=== PATIENT | male | born 1930 | race Caucasian/White ===

== ENCOUNTER → 2018-01-07 | Outpatient (CLI) | payer OTHER ==
[~2018-01-07] MED LIST: HYDACE10B PO
== END ==
LOC: PLD 13:53 → LAB SHORT 13:53
DX: D48.5 Neoplasm of uncertain behavior of skin (principal)
CPT/HCPCS: 88305

== ENCOUNTER 2019-01-10 12:08 | Emergency (ER) | payer MEDICARE ==
[~2019-01-10] VITALS: Ht 177.8 cm; Wt 88.5 kg
[2019-01-10 14:18] LABS: BASOPHILS ABSOLUTE AUTO 0.05 K/mm3 (0.00-0.23); BASOPHILS PERCENT AUTO 0 % (0-2); EOSINOPHILS ABSOLUTE AUTO 0.09 K/mm3 (0.00-0.68); EOSINOPHILS PERCENT AUTO 1 % (0-6); Hematocrit 43.5 % (37.0-53.0); Hemoglobin 14.5 g/dL (13.5-17.5); IMMATURE GRAN PERCENT AUTO 2 % (0-1); LYMPHOCYTES ABSOLUTE AUTO 1.13 K/mm3 (0.84-5.20); LYMPHOCYTES PERCENT AUTO 8 % (21-46); MONOCYTES ABSOLUTE AUTO 0.97 K/mm3 (0.16-1.47); MONOCYTES PERCENT AUTO 7 % (4-13); Mean Corpuscular HGB 32.6 pg (26.0-34.0); Mean Corpuscular HGB Conc 33.3 g/dL (31.5-36.5); Mean Corpuscular Volume 98 fL (80-100); Mean Platelet Volume 8.6 fL (9.1-12.4); NEUTROPHILS ABSOLUTE AUTO 11.07 K/mm3 (1.96-9.15); NEUTROPHILS PERCENT AUTO 82 % (41-73); Platelet Count 160 K/mm3 (150-400); RDW Standard Deviation 43.3 fL (35.1-46.3); Red Blood Cell Count 4.45 M/mm3 (4.30-5.90); White Blood Cell Count 13.51 K/mm3 (4.00-11.30)
[2019-01-10 14:32] LABS: Anion Gap 7 mmol/L (6-16); Blood Urea Nitrogen 15 mg/dL (8-24); Bun/Creatinine Ratio 17.3 (12.0-20.0); CO2, Blood 26 mmol/L (21-32); Calcium, Blood 8.3 mg/dL (8.5-10.1); Chloride, Blood 107 mmol/L (98-108); Creatinine, Blood 0.87 mg/dL (0.60-1.20); Glomerular Filtration Rate >60 (60-); Glucose, Blood 118 mg/dL (70-99); Sodium, Blood 140 mmol/L (136-145)
[2019-01-10] MEDS ORDERED: Ultram50 MG PO (14:45)
== END 2019-01-10 16:03 | disposition home or self-care (01) ==
LOC: ER 12:08
PROVIDERS: Emergency Medicine
DX: S12.112A Nondisplaced Type II dens fracture, initial encounter for closed fracture (principal); S12.601A Unspecified nondisplaced fracture of seventh cervical vertebra, initial encounter for closed fracture; W10.9XXA Fall (on) (from) unspecified stairs and steps, initial encounter; F03.90 Unspecified dementia, unspecified severity, without behavioral disturbance, psychotic disturbance, mood disturbance, and anxiety
CPT/HCPCS: 70450; 72125; 80048; 85025; 96374; 96376; 99284-25; J3010

== ENCOUNTER 2019-01-12 15:51 | Inpatient (IN) | payer OTHER ==
[~2019-01-12] VITALS: Ht 175.3 cm; Wt 96.9 kg
[~2019-01-12 15:51] MED LIST changes: +Ultram50 MG PO
[2019-01-12] MEDS ORDERED: TRAZ50 PO ×2 (17:54)
[2019-01-12] MEDS ORDERED: DONE10 PO (17:54)
[2019-01-12] MEDS ORDERED: POTCHL10ER PO (17:55)
[2019-01-12] MEDS ORDERED: TAMS.4ER PO (17:55)
[2019-01-12] MEDS ORDERED: FURO20 PO (17:55)
[2019-01-12] MEDS ORDERED: Aspirin EC81 MG PO (17:56)
[2019-01-12] MEDS ORDERED: MEMA10 PO (17:56)
[2019-01-12] MEDS ORDERED: DOCU100 PO (17:57)
[2019-01-12] MEDS ORDERED: LACT PO (17:57)
--- NOTE | 2019-01-12 18:30 | NUR ---
REPORT TAKEN. REPORT TAKEN FROM ED RN, JORGE GARCIA. PT ROOM CLEAN & READY FROM ADMISSION.
[2019-01-12] MEDS ORDERED: OXYC5 PO (18:55)
[2019-01-12] MEDS ORDERED: TRAM50 PO (18:57)
[2019-01-13 05:30] LABS: BASOPHILS ABSOLUTE AUTO 0.08 K/mm3 (0.00-0.23); BASOPHILS PERCENT AUTO 1 % (0-2); EOSINOPHILS ABSOLUTE AUTO 0.43 K/mm3 (0.00-0.68); EOSINOPHILS PERCENT AUTO 5 % (0-6); Hemoglobin 13.5 g/dL (13.5-17.5); IMMATURE GRAN ABSOLUTE AUTO 0.13 K/mm3 (0.00-0.10); IMMATURE GRAN PERCENT AUTO 2 % (0-1); LYMPHOCYTES ABSOLUTE AUTO 1.37 K/mm3 (0.84-5.20); LYMPHOCYTES PERCENT AUTO 16 % (21-46); MONOCYTES PERCENT AUTO 13 % (4-13); Mean Corpuscular HGB 33.2 pg (26.0-34.0); Mean Corpuscular HGB Conc 33.8 g/dL (31.5-36.5); Mean Corpuscular Volume 98 fL (80-100); Mean Platelet Volume 8.9 fL (9.1-12.4); NEUTROPHILS ABSOLUTE AUTO 5.35 K/mm3 (1.96-9.15); NEUTROPHILS PERCENT AUTO 63 % (41-73); Platelet Count 151 K/mm3 (150-400); RDW Coefficient Variation 12.4 % (11.7-14.2); RDW Standard Deviation 44.6 fL (35.1-46.3); Red Blood Cell Count 4.07 M/mm3 (4.30-5.90); White Blood Cell Count 8.46 K/mm3 (4.00-11.30)
[2019-01-13 05:43] LABS: Anion Gap 6 mmol/L (6-16); Blood Urea Nitrogen 21 mg/dL (8-24); Bun/Creatinine Ratio 23.9 (12.0-20.0); CO2, Blood 26 mmol/L (21-32); Chloride, Blood 104 mmol/L (98-108); Creatinine, Blood 0.88 mg/dL (0.60-1.20); Glomerular Filtration Rate >60 (60-); Glucose, Blood 105 mg/dL (70-99); Potassium, Blood 4.4 mmol/L (3.5-5.5); Sodium, Blood 136 mmol/L (136-145)
--- NOTE | 2019-01-13 06:02 | NUR ---
01/13/19 0530 AIDE CAME INTO ROOM TO ASSIST SECURITY SYSTEMS ADMINISTRATOR AND NOTED RESP DOWN AND PT UNRESPONSIVE WITH EYES OPEN. NON-VERBAL. FINISHING PAN OPERATOR,JORDYN HOLCOMB CAME AND EVALUATED PT AND NOTED RESP AT 8. PRIMARY RN CAME FROM OTHER PT'S ROOM AND ALSO EVAL. WITH SAME RESULTS. SEE VITALS. NARCAN O.4 MG IN 9 ML SALINE Q 2 MINUTES. ADMINISTERED 3 ML OF TOTAL AMOUNT OVER 10 MINUTES. PT TALKING AND ANSWERING QUESTIONS. RESP AT 12. VITALS STABLE NOW. RN WILL NOTIFY MD OF EVENT.
--- NOTE | 2019-01-13 06:17 | NUR ---
01/13/19 0610 INFORMED HOSPITALIST RECEIVING ASSOCIATE STORE OF PRIOR EVENT STATED. DC DILAUDID AND CONTINUE TO MONITOR FOR PROBLEMS. USE TORADOL FOR PAIN FOR NOW.
--- NOTE | 2019-01-13 11:39 | NUR ---
Spiritual care visit conducted. Patient is lying in bed and alert with patient's friend, Wyatt, and her son Vladislav bedside. Wyatt mostly spoke for patient in that his dementia is advanced. She told of patient's family/life history, of patient's yarsani background and of patient's medical history (including his most recent fall. I listened empathically, encouraged self care for Wyatt, reinforced helpful attitudes and practices and normalized Wyatt's experience. Patient, Wyatt and Vladislav responded well to all interventions and voiced appreciation for the visit.
--- NOTE | 2019-01-14 01:54 | NUR ---
MEDICATED FOR PAIN. PT IS AWAKE, MOANING SOFTLY AND CONFUSED. PT SAYS "NO" WHEN ASKED IF HE IS IN PAIN, BUT IS RESTLESS, GRIMACING AND MOANING SOFTLY. PT WAS MEDICATED FOR PAIN PER ORDER. PT THEN SAID, "I DON'T WANT THEM HERE" PERHAPS SUGGESTING THAT HE DOES NOT WANT THE WIRING TECHNICIAN'S TO DO PERSONAL CARE FOR HIM. PT WAS INFORMED THAT THE WIRING TECHNICIAN'S WOULD BE INSTRUCTED TO WAIT UNTIL THE PAIN MEDICATION HAS TAKEN EFFECT BEFORE ATTEMPTING TO TURN HIM OR CLEAN HIM UP. HE THEN NODDED IN AGREEMENT AND SAID "OKAY". WILL CONTINUE TO MONITOR.
--- NOTE | 2019-01-14 06:33 | NUR ---
VSS, AFEBRILE, CONFUSED, PHMX OF DEMENTIA, SOFT CERVICAL COLLAR IN PLACE, PT SLEPT MOST OF THE NIGHT W/OUT COMPLAINTS. THEN HE WOKE UP, STARTING CALLING OUT FOR HELP REPEATEDLY, C/O PAIN IN HIS HEAD, WAS MEDICATED PER ORDER, CONTINUED TO CALL OUT AND C/O PAIN UNTIL HE FELL BACK TO SLEEP AGAIN. PT PULLED OUT HIS IV DURING HIS THRASHING AROUND. NO ATTEMPTS HAVE BEEN MADE TO RESTART IT WHILE HE WAS YELLING AND C/O PAIN. WILL REPORT TO ON-COMING SHIFT.
--- NOTE | 2019-01-14 11:27 | NUR ---
NOTIFIED DR. BENDER PT PULLED OUT HIS IV LAST NIGHT. NOTIFIED DR. BENDER PT IS ONLY RECIEVING PRN TORADOL VIA IV AND HIS PAIN IS BEING MANAGED WITH PO PAIN MEDS. DR. BENDER SAID OK TO PUT IN NO IV ACCESS NEEDED ORDER.
--- NOTE | 2019-01-14 18:27 | NUR ---
SHIFT SUMMARY- PT CONFUSED. PT RESPONDS TO VERBAL STIMULI. MEDICATED FOR PAIN PER EMAR. RESP E/U ON RA. 94% ON RA. PHYSICAL THERAPY IN TO SEE PT THIS AFTERNOON. FAMILY IN TO SEE PT T/O THE DAY. NO OTHER SIGNIFICANT CHANGES THIS SHIFT.
--- NOTE | 2019-01-14 22:02 | NUR ---
fAMILY REQUESTS PAIN MEDICATION. PT'S FAMILY WAS IN THE ROOM DURING CHANGE OF SHIFT. HIS DAUGHTER SPOKE TO STAFF ABOUT THE AMOUNT OF PAIN MEDICATION THAT IS BEING ADMINISTERED TO HIM. THEY REQUESTED THAT HE BE GIVEN THE MAXIMUM AMOUNT OF PAIN MEDICATION QUICKLY IT BECOMES AVAILABLE. THERE HAD BEEN A PREVIOUS EVENT OF OVER INTOXICATION AND THE PT HAD BEEN ADMINISTERED NARCAN TO REVERSE THE EFFECTS OF NARCOTICS. THIS EVENT WAS, NO DOUBT, VERY PAINFUL FOR HIM. THIS EVENT WAS DISCUSSED WITH THE FAMILY. HOWEVER, THE DAUGHTER REMAINED FIRM IN HER REQUEST TO GIVE HIM MUCH PAIN MEDICATION HE CAN HAVE PER ORDER. THE DAUGHTER ALSO STATED; "YOU HAVE MY PERMISSION TO NOT TURN HIM EVERY TWO HOURS IF IT IS TOO PAINFUL FOR HIM". IT WAS EXPLAINED TO HER THAT THIS IS A FACILITY POLICY THAT IS BACKED BY A SIGNIFICANT BODY OF RESEARCH THAT SUGGESTS THAT TURNING Q 2 HOURS WILL REDUCE HIS RISK FOR GETTING BED SORES. THE DAUGHTER WAS UNIMPRESSED AND AGAIN REQUESTED THAT HER FATHER NOT BE MOVED EVERY 2 HOURS. THE DAUGHTER ALSO STATED THAT SHE WAS LEAVING FOR THE EVENING BUT THAT A CLOSE FAMILY FRIEND WAS COMING OVER SOON WHO WOULD SUPERVISE THE ADMINISTRATION OF THE PATIENT'S PAIN MEDICATION. THIS FRIEND DID, INDEED, ARRIVE AROUND 1999 AND SHE REPEATED ALMOST EVERYTHING THAT THE DAUGHTER HAD REQUESTED. SHE ALSO INSISTED THAT THE MAXIMUM AMOUNT OF PAIN MEDICATION BE GIVEN JUST QUICKLY IT BECAME AVAILABLE. PT WAS MEDICATED FOR PAIN PER ORDER AND AT THE REQUEST OF THE FAMILY. WILL CONTINUE TO MONITOR.
--- NOTE | 2019-01-15 05:25 | NUR ---
VSS, AFEBRILE, ALERT, CONFUSED, DEMENTIA, PT SLEPT WELL ALL NOC, NO COMPLAINTS, NO SIGNIFICANT CHANGES NOTED, WILL REPORT TO ON-COMING SHIFT.
--- NOTE | 2019-01-15 17:13 | NUR ---
SHIFT SUMMARY- PT RESPONDS TO VERBAL STIMULI. PT STATES "I AM NOT DOING GOOD" UPON REPOSITIONING. MEDS GIVEN PER EMAR FOR PAIN. RESP E/U ON RA. ABDOMEN FIRM AND DISTENDED. LARGE BM TODAY. TURNS Q2H. OT IN TO SEE PT TODAY. FAMILY IN TO SEE PT T/O THE DAY. NO OTHER SIGNIFICANT CHANGES THIS SHIFT.
--- NOTE | 2019-01-15 20:47 | NUR ---
VSS, AFEBRILE, A/O TO SELF AND FAMILY. PT'S DAUGHTER WAS HERE AT CHANGE OF SHIFT. SHE SPENT SEVERAL MINUTES DISCUSSING THE FAMILY'S INABILITY TO CARE FOR THE PT AT HOME. SHE ALSO REPEATED THAT ANDREA, THE PT'S HOME CAREGIVER, WILL BE HERE LATER IN THE DAY AND WANTS TO HELP ADMINISTER HIS PAIN MEDICATION. SHE ALSO POINTED OUT THAT ANDREA WILL NOT WANT TO WAIT UNTIL 2200 FOR THE PT'S PAIN MEDICATION. THE DAUGHTER INSISTED THAT THE PAIN MEDICATION SHOULD BE ADMINISTERED SOONER THAN EVERY FOUR HOURS PRESCRIBED BY THE MD. LATER, ANDREA ARRIVED AND SHE DID, INDEED, REQUEST PAIN MEDICATION FOR THE PT BEFORE 2100. THIS DOSE WAS ADMINISTERED BY THE CHARGE NURSE AND IT WAS THE REMAINING AMOUNT OF OXYCODONE THAT HE COULD HAVE GOTTEN AT 1830. HOWEVER, ANDREA CONTINUED TO ASK ABOUT ADMINISTERING HIS MEDICATION SOONER SO THAT SHE COULD GO HOME. THE ISSUE IS THAT IF HE GOT AN ADDITIONAL 5 MG OF OXYCODONE BEFORE 2100 AND THEN GETS THE REQUESTED 10 MG AT 2230 THEN HE WILL HAVE GOTTEN 15 MG IN LESS THAN 4 HOURS. FOR THIS REASON, NO ADDITIONAL OXYCODONE WILL BE ADMINISTERED UNTIL AFTER 2230. WILL CONTINUE TO MONITOR.
--- NOTE | 2019-01-16 05:10 | NUR ---
VSS, AFEBRILE, A/O TO SELF AND FAMILY, PT SLEPT WELL OVERNOC BUT WOKE OFTEN FOR SHOFT PERIODS OF TIME. PT IS IRRITABLE AND EASILY ANNOYED WITH HIS CAREGIVERS. PT WAS ALSO IRRITABLE WITH ANDREA, HIS PRIMARY CAREGIVER AT HOME. PT MEDICATED FOR PAIN PER ORDER. DAUGHTER SPOKE TO STAFF ABOUT HER INABILITY TO CARE FOR HIM AT HOME. THIS INFORMATION MIGHT BE IRRITATING HIM, WELL. WILL REPORT TO ON-COMING SHIFT.
--- NOTE | 2019-01-16 14:28 | NUR ---
MID SHIFT SUMMARY PATIENT IS UP IN CHAIR RESTING THIS AFTERNOON WITH HIS FAMILY BY HIS SIDE
--- NOTE | 2019-01-16 18:40 | NUR ---
SHIFT SUMMARY CONFUSED/DEMENTIA; 2 PERSON MAX ASSIST TO CHAIR. MEDICATED Q4 FOR NECK PAIN. INCONTINENT. FAMILY REQUESTING PT TO STAY THROUGH THE WEEKEND DUE TO INABILITY TO OBTAIN DURABLE MEDICAL EQUIPMENT [facility]IL [facility] STODDARED AWARE BUT WILL BE WRITING DISCHARGE ORDERS TO HOME WITH HOME HEALTH IN A.M.
--- NOTE | 2019-01-17 06:13 | NUR ---
SHIFT SUMMARY PT SLEPT WELL T/O NIGHT. NO ACUTE CHANGES THIS SHIFT. AOX1, HX DEMENTIA, ANSWERS SOME YES/NO QUESTIONS APPROPRIATELY. VSS. NO S/S OF SOB OR N/V. SHOWS NON-VERBAL S/S OF PAIN SUCH MOANING, RESTLESSNESS, GRIMACING & BRACING. MEDICATED PT 3X W/OXYCODONE PER ORDERS. REPOSITIONED/CHANGED PRN, PT IS HARD TO ROLL & DOES NOT HELP- REQUIRES 3 PEOPLE TO ASSIST W/CHANGES. CALL LIGHT IN REACH, BED ALARM ON & I WILL CONTINUE TO MONITOR.
--- NOTE | 2019-01-17 15:52 | NUR ---
Initial Visit: Palliative Care Consult for Advanced Care Planning. Pt is A&Ox1. He is pleasantly confused and appears comfortable. Pt's son Davon present during visit. Engaged in therapeutic discussion regarding advanced care planning. Davon reports Pt has a girlfriend of 30 plus years and Pt has been staying with her. Pt also has his own home. When asked questions regarding Pt's ADL's Davon responds by stating Pt is independent with everything. Further in the discussion Davon reports the Pt often puts his clothes on in appripriately. Davon states there has been times when the Pt is wearing his shirt as pants and his pants as a shirt. Pt at [facility] requires the use of a walker with standbye assist. Pt is able to feed him self as well. Pt requires assistance with food preparation as well. Educated Davon on the disease process of dementia. Discussed the importance of planning for the Pt's disease process and at some point Pt may require a higher level of care. Pt's daughter Bety arrives at this point. Continued conversation regarding the importance of advanced care planning. Davon states assisted living is not an option yet. Davon appears to be in denial of Pt's disease process. Discussed the option of caregivers coming into the home. Davon reports the Pt's girlfriend will not allow anyone in her home including caregivers. Davon states he is moving in to the Pt's home to help care for him. Discussed talking with the MD regarding music coordinator program. Davon reports he will inquire about this. Family expresses frustrations regarding discharge plan. Family does not feel it is safe for Pt to be discharged at this time. They express disagreement with physical therapy's recommendation of home health. Family report Pt is not equiped to go home yet. Davon reports the Pt needs a hospital bed and transfer equipment in the home before Pt is discharged in order to care for Pt safely. Family reports their plan is to take Pt back to [facility] once discharged from [facility] in hopes they will admit Pt. Family reports no other concerns at this time. Spoke with Bety (physical theapy) regarding recommendations. Bety reports Pt does not qualify for SNF due to Pt's inability to follow commands for physical therapy rehabilitation. Bety reports physical therapy for Pt at home would be more beneficial. Pt requires mechanical lift for transfers and hospital bed would also be beneficial. Bety reports this was discussed with family by care managment. earlier in the week to prepare them for discharge. Spoke with Pt's bedside nurse Karo and she expresses some concerns for a safe discharge plan. Karo also reports family appears to be in denial of Pt's disease process. Spoke with Dr Gurrola and reported family concerns of discharge plan. Dr Gurrola reports concerns have been noted and is required to discharge Pt. Plan: Will remain available. Left family contact information for palliative care.
[2019-01-17 16:06] LABS: Source, Urine Catheter
[2019-01-17 16:11] LABS: Appearance, Urine Clear (Clear); Bilirubin, Urine Neg (Neg); Blood, Urine 2+ (Neg); Color, Urine Yellow (P-Yellow); Glucose Qualitative, Urine Neg (Neg); Ketones, Urine Neg (Neg); Leukocyte Esterase, Urine Neg (Neg); Nitrite, Urine Neg (Neg); Protein, Urine Neg (Neg); Urobilinogen, Urine NORM (Normal)
--- NOTE | 2019-01-17 16:16 | NUR ---
DISCHARGE SUMMARY BILL LOOKS MILDLY PAINFUL AT TIMES THIS SHIFT, GIVEN OXY PER FAMILY REQUEST. ABD DISTENDED, PER FMAILY THIS IS NORMAL, BUT PT HAVING SUPRAPUBIC PAIN ON PALPATION, BLADDER SCAN SHOWING 866MLS. DR BENDER INFORMED, HE ORDERED RAMOS CATHETER WITH LEG BAG TO BE SENT HOME WITH PT. PT AND FAMILY EDUCATED ON CATHETER NECESSITY AND CARE. HH ORDERS FAXED TO [facility]. PT LEAVING VIA WHEELCHAIR TRANSPORT THAT IS BEING PAID FOR BY FAMILY.PT TOOK PILLS PRESCRIBED. Q2 TURN AND INCONTINENCE CARE COMPLETED. HAD 3 SMALL BM THIS SHIFT. BOTTOM RED BUT INTACT. TRIED TO GET PT UP WITH MAX ASSIST OF 2 BUT UNABLE ?DUE TO MENTAL STATUS VS WEAKNESS. SON AND DAUGHTER AT BS. PALLIATIVE CARE NURSE FINESSE IN TO SEE PT. SEE NOTES.
[2019-01-17 16:24] LABS: Bacteria Not Seen /hpf; Squamous Epithelial Cells Not Seen /hpf (Few); White Blood Cells, Urine 0-2 /hpf (0-5)
== END 2019-01-17 18:44 | disposition home health service (06) | DRG 948 ==
LOC: ER 15:51 → MEDS 17:39 → ENPENDDIS 01-17 11:01 → MEDS 01-17 18:44
PROVIDERS: Internal Medicine; ADMIT Internal Medicine
DX: G89.11 Acute pain due to trauma (principal); S12.110A Anterior displaced Type II dens fracture, initial encounter for closed fracture; S12.600A Unspecified displaced fracture of seventh cervical vertebra, initial encounter for closed fracture; G89.21 Chronic pain due to trauma; N40.0 Benign prostatic hyperplasia without lower urinary tract symptoms; F03.90 Unspecified dementia, unspecified severity, without behavioral disturbance, psychotic disturbance, mood disturbance, and anxiety; Z99.3 Dependence on wheelchair; W19.XXXA Unspecified fall, initial encounter; M51.36 Other intervertebral disc degeneration, lumbar region; M48.061 Spinal stenosis, lumbar region without neurogenic claudication; Z51.5 Encounter for palliative care
CPT/HCPCS: 36415; 80048; 81001; 85025; 96374; 97162; 97166; 97530; 97535; 99285-25; C9113; J1170; J1650; J1885; J2310

== ENCOUNTER → 2019-04-22 | Outpatient (CLI) | payer OTHER ==
[~2019-04-22] MED LIST changes: +ALBU3IS INH; +Aspir 8181 MG PO; +Aspirin EC81 MG PO; +CRANBERRY450 MG PO; +Cipro500 MG PO; +Ciprofloxa400 MG/200 IV; +DOCU100 PO; +DONE10 PO; +FURO20 PO; +FURO40 PO; +LACT PO; +MEMA10 PO; +MIRALAX17 GM PO; +OMEPRAZOLE20 MG PO; +OXYC5 PO; +POTCHL10ER PO; +POTCHL20ER PO; +Rocephin 1g1 G/50 ML IM; +TAMS.4ER PO; +TRAM50 PO; +TRAZ150T57 PO; +TRAZ50 PO; +Vitamin D2000 UNIT PO
[2019-04-22 08:17] LABS: Source, Urine Catheter
[2019-04-22 09:31] LABS: Bilirubin, Urine Neg (Neg); Blood, Urine 5+ (Neg); Glucose Qualitative, Urine Neg (Neg); Ketones, Urine Neg (Neg); Leukocyte Esterase, Urine 2+ (Neg); Nitrite, Urine Neg (Neg); Protein, Urine 2+ (Neg); Urobilinogen, Urine NORM (Normal)
[2019-04-22 09:47] LABS: Appearance, Urine Cloudy (Clear); Color, Urine Orange (P-Yellow)
[2019-04-22 09:50] LABS: Red Blood Cells, Urine TNTC /hpf (0-2)
[2019-04-22 09:51] LABS: Bacteria Few /hpf; Squamous Epithelial Cells Rare /hpf (Few)
[2019-04-22 09:52] LABS: Amorphous Light (0-Heavy)
== END | disposition home or self-care (01) ==
LOC: LAB RH 08:16 → EDSTATUS 15:28
DX: N39.0 Urinary tract infection, site not specified (principal)
CPT/HCPCS: 81001; 87077; 87086; 87186

== ENCOUNTER → 2019-06-28 | Outpatient (CLI) | payer OTHER ==
[~2019-06-28] MED LIST changes: +ACET325 PO; +ADULT GLYCERIN1 EACH PR; +ALBU90OI INH; +Amoxicillin500 MG PO; +DONEPEZIL HCL10 MG PO; +Feverall650 MG PR; +Fleet Enema132 ML PR; +IBUP600 PO; +Lasix40 MG PO; +Loratadine10 MG PO; +MILK OF MA400 MG/5 M PO
[2019-06-28 18:26] LABS: Appearance, Urine Hazy (Clear); Bilirubin, Urine Neg (Neg); Blood, Urine 5+ (Neg); Color, Urine Yellow (P-Yellow); Glucose Qualitative, Urine Neg (Neg); Ketones, Urine Neg (Neg); Leukocyte Esterase, Urine 3+ (Neg); Nitrite, Urine Neg (Neg); Protein, Urine 3+ (Neg); Urobilinogen, Urine NORM (Normal)
[2019-06-28 18:45] LABS: Bacteria Many /hpf; Mucus Light (0-Heavy); Squamous Epithelial Cells Few /hpf (Few); White Blood Cells, Urine 50-100 /hpf (0-5)
== END | disposition home or self-care (01) ==
LOC: EDSTATUS 09:19 → LAB RH 18:18
DX: I10 Essential (primary) hypertension (principal)
CPT/HCPCS: 81001; 87077; 87086; 87186

== ENCOUNTER 2019-06-30 07:18 | Emergency (ER) | payer OTHER ==
[~2019-06-30] VITALS: Ht 182.9 cm; Wt 95.2 kg
[~2019-06-30 07:18] MED LIST changes: -ACET325 PO; -ADULT GLYCERIN1 EACH PR; -ALBU3IS INH; -ALBU90OI INH; -Amoxicillin500 MG PO; -Aspir 8181 MG PO; -CRANBERRY450 MG PO; -Cipro500 MG PO; -Ciprofloxa400 MG/200 IV; -DONEPEZIL HCL10 MG PO; -FURO40 PO; -Feverall650 MG PR; -Fleet Enema132 ML PR; -IBUP600 PO; -Lasix40 MG PO; -Loratadine10 MG PO; -MILK OF MA400 MG/5 M PO; -MIRALAX17 GM PO; -OMEPRAZOLE20 MG PO; -POTCHL20ER PO; -Rocephin 1g1 G/50 ML IM; -TRAZ150T57 PO; -Vitamin D2000 UNIT PO
[2019-06-30] MEDS ORDERED: Rocephin 1g1 G/50 ML IM (07:29)
[2019-06-30] MEDS ORDERED: Vitamin D2000 UNIT PO (07:30)
[2019-06-30] MEDS ORDERED: Aspir 8181 MG PO (07:30)
[2019-06-30] MEDS ORDERED: DONE10 PO (07:30)
[2019-06-30] MEDS ORDERED: TAMS.4ER PO (07:30)
[2019-06-30] MEDS ORDERED: TRAZ150T57 PO (07:31)
[2019-06-30] MEDS ORDERED: MEMA10 PO (07:32)
[2019-06-30] MEDS ORDERED: FURO40 PO (07:32)
[2019-06-30] MEDS ORDERED: POTCHL20ER PO (07:33)
[2019-06-30] MEDS ORDERED: OXYC5 PO (07:33)
[2019-06-30] MEDS ORDERED: OMEPRAZOLE20 MG PO (07:33)
[2019-06-30] MEDS ORDERED: TRAZ50 PO (07:34)
[2019-06-30] MEDS ORDERED: ALBU3IS INH (07:34)
[2019-06-30 08:00] LABS: BASOPHILS ABSOLUTE AUTO 0.04 K/mm3 (0.00-0.23); BASOPHILS PERCENT AUTO 0 % (0-2); Hematocrit 42.1 % (37.0-53.0); Hemoglobin 13.2 g/dL (13.5-17.5); LYMPHOCYTES ABSOLUTE AUTO 0.74 K/mm3 (0.84-5.20); LYMPHOCYTES PERCENT AUTO 6 % (21-46); MONOCYTES ABSOLUTE AUTO 1.14 K/mm3 (0.16-1.47); MONOCYTES PERCENT AUTO 10 % (4-13); Mean Corpuscular HGB 31.9 pg (26.0-34.0); Mean Corpuscular HGB Conc 31.4 g/dL (31.5-36.5); RDW Coefficient Variation 13.2 % (11.7-14.2); Red Blood Cell Count 4.14 M/mm3 (4.30-5.90); White Blood Cell Count 11.81 K/mm3 (4.00-11.30)
[2019-06-30 08:18] LABS: EOSINOPHILS ABSOLUTE AUTO 0.02 K/mm3 (0.00-0.68); EOSINOPHILS PERCENT AUTO 0 % (0-6); IMMATURE GRAN ABSOLUTE AUTO 0.26 K/mm3 (0.00-0.10); IMMATURE GRAN PERCENT AUTO 2 % (0-1); Mean Corpuscular Volume 102 fL (80-100); Mean Platelet Volume 9.5 fL (9.1-12.4); NEUTROPHILS ABSOLUTE AUTO 9.61 K/mm3 (1.96-9.15); NEUTROPHILS PERCENT AUTO 81 % (41-73); Platelet Count 168 K/mm3 (150-400)
[2019-06-30 08:22] LABS: BAND PERCENT MAN 8 % (0-8); BASOPHILS ABSOLUTE MAN 0.11 K/mm3 (0.00-0.23); BASOPHILS PERCENT MAN 1 % (0-2); EOSINOPHILS PERCENT MAN 0 % (0-6); LYMPHOCYTES ABSOLUTE MAN 0.94 K/mm3 (0.84-5.20); LYMPHOCYTES PERCENT MAN 8 % (21-46); MONOCYTES ABSOLUTE MAN 0.94 K/mm3 (0.16-1.47); MONOCYTES PERCENT MAN 8 % (4-13); SEG NEUTROPHILS PERCENT MAN 75 % (41-73); TOTAL CELLS COUNTED 100
[2019-06-30 08:42] LABS: Albumin, Blood 2.8 g/dL (3.4-5.0); Albumin/Globulin Ratio 0.6 (0.8-1.8); Bilirubin, Total 0.6 mg/dL (0.1-1.0); Bun/Creatinine Ratio 24.2 (12.0-20.0); Creatinine, Blood 1.28 mg/dL (0.60-1.20); Globulin, Blood 4.6 g/dL (2.2-4.0); Total Protein, Blood 7.4 g/dL (6.4-8.2)
[2019-06-30 08:59] LABS: Calcium, Blood 8.4 mg/dL (8.5-10.1)
[2019-06-30] MEDS ORDERED: Cipro500 MG PO (10:05)
--- NOTE | 2019-06-30 10:42 | NUR ---
Initial Visit: ED Palliative Care Consult for Advanced Care Planning. Spoke with Dr Wayne and discussed case. Pt is resting on gurina upon arrival. Dr Wayne educates family on clinical picture and plan. This RN remained in room and contined education. Pt's daughter Camelia (MPOA) and Pt's son in law are present. Pt is known to this contract writer from previous visit. Pt currently lives at [facility]. Listened as Camelia explains up intil the last few days Pt has been able to have meaningful conversations and had a good appetite. At baseline Pt is chair bound with an indwelling Thomas Catheter. Pt also has a history of recurrent UTI's. Educated family on disease process including trajecory of disease with V/U made by family. Educated on hospice as an option. Family report no other concerns at this time. Spoke with Dr Wayne after visit and plan is to disharge Pt. Palliative Care will remain available.
[2019-07-05] MEDS ORDERED: CRANBERRY450 MG PO (06:14)
[2019-07-05] MEDS ORDERED: MIRALAX17 GM PO (06:14)
[2019-07-05] MEDS ORDERED: Ciprofloxa400 MG/200 IV (06:20)
== END 2019-06-30 10:45 | disposition home or self-care (01) ==
LOC: ER 07:18
PROVIDERS: Emergency Medicine
DX: N39.0 Urinary tract infection, site not specified (principal); R41.82 Altered mental status, unspecified; Z88.8 Allergy status to other drugs, medicaments and biological substances; Z79.899 Other long term (current) drug therapy; Z79.82 Long term (current) use of aspirin; F03.90 Unspecified dementia, unspecified severity, without behavioral disturbance, psychotic disturbance, mood disturbance, and anxiety
CPT/HCPCS: 71045; 80053; 85025; 93005; 93010; 96365; 99284-25; J1956; J7030

== ENCOUNTER 2019-08-26 16:37 | Emergency (ER) | payer OTHER ==
[~2019-08-26] VITALS: Ht 172.7 cm; Wt 110.7 kg
[~2019-08-26 16:37] MED LIST changes: +ALBU3IS INH; +Aspir 8181 MG PO; +CRANBERRY450 MG PO; +Cipro500 MG PO; +Ciprofloxa400 MG/200 IV; +FURO40 PO; +MIRALAX17 GM PO; +OMEPRAZOLE20 MG PO; +POTCHL20ER PO; +Rocephin 1g1 G/50 ML IM; +TRAZ150T57 PO; +Vitamin D2000 UNIT PO
[2019-08-26 17:12] LABS: BASOPHILS ABSOLUTE AUTO 0.08 K/mm3 (0.00-0.23); BASOPHILS PERCENT AUTO 1 % (0-2); EOSINOPHILS ABSOLUTE AUTO 0.68 K/mm3 (0.00-0.68); EOSINOPHILS PERCENT AUTO 10 % (0-6); Hematocrit 48.1 % (37.0-53.0); Hemoglobin 14.8 g/dL (13.5-17.5); IMMATURE GRAN ABSOLUTE AUTO 0.08 K/mm3 (0.00-0.10); IMMATURE GRAN PERCENT AUTO 1 % (0-1); LYMPHOCYTES ABSOLUTE AUTO 1.73 K/mm3 (0.84-5.20); LYMPHOCYTES PERCENT AUTO 26 % (21-46); MONOCYTES ABSOLUTE AUTO 0.63 K/mm3 (0.16-1.47); MONOCYTES PERCENT AUTO 9 % (4-13); Mean Corpuscular HGB 32.3 pg (26.0-34.0); Mean Corpuscular HGB Conc 30.8 g/dL (31.5-36.5); Mean Corpuscular Volume 105 fL (80-100); Mean Platelet Volume 8.7 fL (9.1-12.4); NEUTROPHILS ABSOLUTE AUTO 3.55 K/mm3 (1.96-9.15); NEUTROPHILS PERCENT AUTO 53 % (41-73); Platelet Count 185 K/mm3 (150-400); RDW Standard Deviation 50.2 fL (35.1-46.3); Red Blood Cell Count 4.58 M/mm3 (4.30-5.90); White Blood Cell Count 6.75 K/mm3 (4.00-11.30)
[2019-08-26 17:47] LABS: Alanine Aminotransfer (ALT/SGP 38 U/L (12-78); Albumin, Blood 3.4 g/dL (3.4-5.0); Albumin/Globulin Ratio 0.8 (0.8-1.8); Alk Phos 105 U/L (50-136); Anion Gap 6 mmol/L (6-16); Aspartate Aminotrans (AST/SGOT 30 U/L (12-37); Bilirubin, Total 0.5 mg/dL (0.1-1.0); Blood Urea Nitrogen 21 mg/dL (8-24); Bun/Creatinine Ratio 23.6 (12.0-20.0); CO2, Blood 25 mmol/L (21-32); Calcium, Blood 8.4 mg/dL (8.5-10.1); Chloride, Blood 109 mmol/L (98-108); Creatinine, Blood 0.89 mg/dL (0.60-1.20); Globulin, Blood 4.2 g/dL (2.2-4.0); Glomerular Filtration Rate >60 (60-); Glucose, Blood 110 mg/dL (70-99); Potassium, Blood 4.4 mmol/L (3.5-5.5); Sodium, Blood 140 mmol/L (136-145); Total Protein, Blood 7.6 g/dL (6.4-8.2)
[2019-08-26] MEDS ORDERED: DONEPEZIL HCL10 MG PO (18:20)
[2019-08-26] MEDS ORDERED: Loratadine10 MG PO (18:21)
[2019-08-26] MEDS ORDERED: Feverall650 MG PR (18:22)
[2019-08-26] MEDS ORDERED: TRAZ50 PO (18:25)
[2019-08-26] MEDS ORDERED: ALBU90OI INH (18:27)
[2019-08-26] MEDS ORDERED: IBUP600 PO (18:28)
[2019-08-26] MEDS ORDERED: MILK OF MA400 MG/5 M PO (18:28)
[2019-08-26] MEDS ORDERED: ACET325 PO (18:29)
[2019-08-26] MEDS ORDERED: Fleet Enema132 ML PR (18:30)
[2019-08-26] MEDS ORDERED: ADULT GLYCERIN1 EACH PR (18:30)
[2019-08-26 19:20] LABS: Bilirubin, Urine Neg (Neg); Blood, Urine 1+ (Neg); Glucose Qualitative, Urine Neg (Neg); Ketones, Urine Neg (Neg); Leukocyte Esterase, Urine 3+ (Neg); Nitrite, Urine Pos (Neg); Protein, Urine Neg (Neg); Urobilinogen, Urine NORM (Normal)
[2019-08-26 19:33] LABS: Appearance, Urine Hazy (Clear); Color, Urine Yellow (P-Yellow)
[2019-08-26 19:34] LABS: Bacteria Many /hpf; Mucus Light (0-Heavy); Red Blood Cells, Urine 0-2 /hpf (0-2); Squamous Epithelial Cells Rare /hpf (Few)
[2019-08-26] MEDS ORDERED: Amoxicillin500 MG PO (19:55)
[2019-08-26] MEDS ORDERED: Lasix40 MG PO (20:01)
== END 2019-08-26 20:52 | disposition home or self-care (01) ==
LOC: ER 16:37
PROVIDERS: Emergency Medicine
DX: E87.70 Fluid overload, unspecified (principal); F03.90 Unspecified dementia, unspecified severity, without behavioral disturbance, psychotic disturbance, mood disturbance, and anxiety; Z88.8 Allergy status to other drugs, medicaments and biological substances; Z79.899 Other long term (current) drug therapy; Z79.82 Long term (current) use of aspirin; Z86.73 Personal history of transient ischemic attack (TIA), and cerebral infarction without residual deficits
CPT/HCPCS: 36415; 51701; 71046; 80053; 81001; 83880; 85025; 87077; 87086; 87186; 96365-59; 99284-25; J0696

== ENCOUNTER → 2019-11-26 | Outpatient (CLI) | payer OTHER ==
[~2019-11-26] MED LIST changes: +ACET325 PO; +ADULT GLYCERIN1 EACH PR; +ALBU90OI INH; +Amoxicillin500 MG PO; +DONEPEZIL HCL10 MG PO; +Feverall650 MG PR; +Fleet Enema132 ML PR; +IBUP600 PO; +Lasix40 MG PO; +Loratadine10 MG PO; +MILK OF MA400 MG/5 M PO
[2019-11-26 09:34] LABS: BASOPHILS ABSOLUTE AUTO 0.08 K/mm3 (0.00-0.23); BASOPHILS PERCENT AUTO 1 % (0-2); EOSINOPHILS ABSOLUTE AUTO 0.54 K/mm3 (0.00-0.68); EOSINOPHILS PERCENT AUTO 8 % (0-6); Hemoglobin 14.4 g/dL (13.5-17.5); IMMATURE GRAN ABSOLUTE AUTO 0.06 K/mm3 (0.00-0.10); IMMATURE GRAN PERCENT AUTO 1 % (0-1); LYMPHOCYTES ABSOLUTE AUTO 1.54 K/mm3 (0.84-5.20); LYMPHOCYTES PERCENT AUTO 22 % (21-46); MONOCYTES ABSOLUTE AUTO 0.94 K/mm3 (0.16-1.47); MONOCYTES PERCENT AUTO 13 % (4-13); Mean Corpuscular HGB 31.9 pg (26.0-34.0); Mean Corpuscular HGB Conc 31.3 g/dL (31.5-36.5); Mean Corpuscular Volume 102 fL (80-100); NEUTROPHILS ABSOLUTE AUTO 3.95 K/mm3 (1.96-9.15); NEUTROPHILS PERCENT AUTO 56 % (41-73); Platelet Count 179 K/mm3 (150-400); RDW Coefficient Variation 12.1 % (11.7-14.2); RDW Standard Deviation 45.6 fL (35.1-46.3); Red Blood Cell Count 4.52 M/mm3 (4.30-5.90); White Blood Cell Count 7.11 K/mm3 (4.00-11.30)
[2019-11-26 10:30] LABS: Anion Gap 6 mmol/L (6-16); Blood Urea Nitrogen 23 mg/dL (8-24); Bun/Creatinine Ratio 23.6 (12.0-20.0); CO2, Blood 29 mmol/L (21-32); Calcium, Blood 8.8 mg/dL (8.5-10.1); Chloride, Blood 107 mmol/L (98-108); Creatinine, Blood 0.98 mg/dL (0.60-1.20); Glomerular Filtration Rate >60 (60-); Glucose, Blood 100 mg/dL (70-99); Potassium, Blood 4.2 mmol/L (3.5-5.5); Sodium, Blood 142 mmol/L (136-145)
== END | disposition home or self-care (01) ==
LOC: LAB RH 07:40 → EDSTATUS 15:36
PROVIDERS: Family Medicine
DX: I73.9 Peripheral vascular disease, unspecified (principal); G45.9 Transient cerebral ischemic attack, unspecified
CPT/HCPCS: 36415; 80048; 85025

== ENCOUNTER → 2019-12-31 | Outpatient (CLI) | payer OTHER ==
[2019-12-31 09:44] LABS: Anion Gap 2 mmol/L (6-16); Blood Urea Nitrogen 17 mg/dL (8-24); Bun/Creatinine Ratio 15.2 (12.0-20.0); CO2, Blood 37 mmol/L (21-32); Calcium, Blood 9.1 mg/dL (8.5-10.1); Chloride, Blood 107 mmol/L (98-108); Creatinine, Blood 1.12 mg/dL (0.60-1.20); Glomerular Filtration Rate >60 (60-); Glucose, Blood 101 mg/dL (70-99); Potassium, Blood 5.1 mmol/L (3.5-5.5); Sodium, Blood 146 mmol/L (136-145)
== END | disposition home or self-care (01) ==
LOC: LAB RH 07:40 → EDSTATUS 11:01
PROVIDERS: Family Medicine
DX: I73.9 Peripheral vascular disease, unspecified (principal)
CPT/HCPCS: 80048

== ENCOUNTER → 2020-01-26 | Outpatient (CLI) | payer OTHER ==
[2020-01-26 11:01] LABS: Anion Gap 6 mmol/L (6-16); Blood Urea Nitrogen 14 mg/dL (8-24); Bun/Creatinine Ratio 16.1 (12.0-20.0); CO2, Blood 30 mmol/L (21-32); Chloride, Blood 107 mmol/L (98-108); Creatinine, Blood 0.87 mg/dL (0.60-1.20); Glomerular Filtration Rate >60 (60-); Glucose, Blood 117 mg/dL (70-99); Potassium, Blood 4.3 mmol/L (3.5-5.5); Sodium, Blood 143 mmol/L (136-145)
== END | disposition home or self-care (01) ==
LOC: LAB RH 09:28 → EDSTATUS 10:00
DX: I73.9 Peripheral vascular disease, unspecified (principal); E78.5 Hyperlipidemia, unspecified
CPT/HCPCS: 80048

== ENCOUNTER → 2020-06-28 | Outpatient (CLI) | payer OTHER ==
[2020-06-28 16:27] LABS: Anion Gap 2 mmol/L (6-16); Blood Urea Nitrogen 14 mg/dL (8-24); Bun/Creatinine Ratio 16.7 (12.0-20.0); CO2, Blood 32 mmol/L (21-32); Calcium, Blood 8.7 mg/dL (8.5-10.1); Chloride, Blood 108 mmol/L (98-108); Creatinine, Blood 0.84 mg/dL (0.60-1.20); Glomerular Filtration Rate >60 (60-); Glucose, Blood 115 mg/dL (70-99); Potassium, Blood 3.9 mmol/L (3.5-5.5); Sodium, Blood 142 mmol/L (136-145)
== END | disposition home or self-care (01) ==
LOC: EDSTATUS 13:57 → LAB RH 16:00
PROVIDERS: Family Medicine
DX: I73.9 Peripheral vascular disease, unspecified (principal); E78.5 Hyperlipidemia, unspecified; G45.9 Transient cerebral ischemic attack, unspecified; F03.90 Unspecified dementia, unspecified severity, without behavioral disturbance, psychotic disturbance, mood disturbance, and anxiety
CPT/HCPCS: 80048

== ENCOUNTER 2020-07-20 15:36 | Inpatient (IN) | payer OTHER ==
[~2020-07-20] VITALS: Ht 182.9 cm; Wt 102.5 kg
[2020-07-20 16:15] LABS: BASOPHILS ABSOLUTE AUTO 0.05 K/mm3 (0.00-0.23); BASOPHILS PERCENT AUTO 0 % (0-2); EOSINOPHILS PERCENT AUTO 0 % (0-6); Hematocrit 50.8 % (37.0-53.0); Hemoglobin 16.6 g/dL (13.5-17.5); IMMATURE GRAN ABSOLUTE AUTO 0.17 K/mm3 (0.00-0.10); IMMATURE GRAN PERCENT AUTO 1 % (0-1); LYMPHOCYTES ABSOLUTE AUTO 0.67 K/mm3 (0.84-5.20); LYMPHOCYTES PERCENT AUTO 4 % (21-46); MONOCYTES PERCENT AUTO 6 % (4-13); Mean Corpuscular HGB Conc 32.7 g/dL (31.5-36.5); Mean Corpuscular Volume 98 fL (80-100); Mean Platelet Volume 8.6 fL (9.1-12.4); NEUTROPHILS ABSOLUTE AUTO 16.66 K/mm3 (1.96-9.15); NEUTROPHILS PERCENT AUTO 89 % (41-73); Platelet Count 213 K/mm3 (150-400); RDW Coefficient Variation 12.4 % (11.7-14.2); RDW Standard Deviation 44.8 fL (35.1-46.3); Red Blood Cell Count 5.18 M/mm3 (4.30-5.90); White Blood Cell Count 18.75 K/mm3 (4.00-11.30)
[2020-07-20 16:38] LABS: Alanine Aminotransfer (ALT/SGP 610 U/L (12-78); Albumin, Blood 3.4 g/dL (3.4-5.0); Albumin/Globulin Ratio 0.7 (0.8-1.8); Alk Phos 272 U/L (50-136); Anion Gap 8 mmol/L (6-16); Aspartate Aminotrans (AST/SGOT 397 U/L (12-37); Bilirubin, Total 2.4 mg/dL (0.1-1.0); Blood Urea Nitrogen 14 mg/dL (8-24); Bun/Creatinine Ratio 18.7 (12.0-20.0); CO2, Blood 26 mmol/L (21-32); Calcium, Blood 8.9 mg/dL (8.5-10.1); Chloride, Blood 107 mmol/L (98-108); Creatinine, Blood 0.75 mg/dL (0.60-1.20); Globulin, Blood 4.6 g/dL (2.2-4.0); Glomerular Filtration Rate >60 (60-); Glucose, Blood 128 mg/dL (70-99); Potassium, Blood 4.3 mmol/L (3.5-5.5); Sodium, Blood 141 mmol/L (136-145); Troponin I <0.015 ng/mL (0.000-0.040)
[2020-07-20] MEDS ORDERED: TAMS.4ER PO (19:26)
[2020-07-20] MEDS ORDERED: Aspirin EC81 MG PO (19:26)
[2020-07-20] MEDS ORDERED: Vitamin D2000 UNIT PO (19:26)
[2020-07-20] MEDS ORDERED: TRAZ50 PO (19:27)
[2020-07-20] MEDS ORDERED: DOCU100 PO (19:27)
[2020-07-20] MEDS ORDERED: ALLERCLEAR10 MG PO (19:27)
[2020-07-20] MEDS ORDERED: FURO40 PO (19:27)
[2020-07-20] MEDS ORDERED: MEMA10 PO (19:28)
[2020-07-20] MEDS ORDERED: MIRALAX17 GM PO (19:28)
[2020-07-20] MEDS ORDERED: CRANBERRY450 M1 PO (19:28)
[2020-07-20] MEDS ORDERED: POTCHL20ER PO (19:29)
[2020-07-20] MEDS ORDERED: OXYC5 PO (19:29)
[2020-07-20 20:17] LABS: Source, Urine Voided
[2020-07-20 20:20] LABS: Blood, Urine 4+ (Neg); Glucose Qualitative, Urine Neg (Neg); Ketones, Urine Neg (Neg); Leukocyte Esterase, Urine 3+ (Neg); Nitrite, Urine Pos (Neg); Protein, Urine 3+ (Neg); Specific Gravity, Urine 1.015 (1.003-1.022); Urobilinogen, Urine 1+ (Normal)
[2020-07-20 20:25] LABS: Bilirubin, Urine 1+ (Neg)
[2020-07-20 20:26] LABS: Appearance, Urine Cloudy (Clear); Color, Urine Yellow (P-Yellow)
[2020-07-20 20:29] LABS: Amorphous Light (0-Heavy); Bacteria Many /hpf; Red Blood Cells, Urine 0-2 /hpf (0-2); Squamous Epithelial Cells Few /hpf (Few); White Blood Cells, Urine TNTC /hpf (0-5)
[2020-07-20 21:27] LABS: Hematocrit 52.8 % (37.0-53.0); Hemoglobin 16.6 g/dL (13.5-17.5)
[2020-07-20] MEDS ORDERED: ACET325 PO (21:34)
--- NOTE | 2020-07-20 22:30 | NUR ---
PCU ADMIT PT BROUGHT TO PCU-09 BY EDISON FROM ER @ APPROX 2100. PT SLID OVER BY 4 STAFF MEMBERS W/ SLIDER SHEET. PT LETHARGIC, RESPONDS TO PAINFUL STIMULI BY GRUNTING/MOANING, AND PULLING AWAY. PT SIGNIFICANT OTHER ACCOMPANYING PT. S/O REPORTS PT W/ CONFUSION @ BASELINE & REPORTS PT BEDBOUND/WHEELCHAIR BOUND @ BASELINE FOR THE PAST YR APPROXIMATELY. PT VSS. LUNG SOUNDS W/ WHEEZE. SPO2 > 92% ON 2L NC W/ PT S/O REPORT OF RA @ BASELINE. MONITOR SHOWS SR, HR 70's-80's. ABD FIRM & DISTENDED. NGT IN PLACE W/ LOW INTERMITTENT SUCTION DRAINING DARK BROWN OUTPUT. PROTONIX GTT & NS GTT INITIATED UPON ARRIVAL TO UNIT. PT INCONTINENT OF URINE, ATTENDS IN PLACE. Q2H REPOSITIONING. WILL CONTINUE TO MONITOR & PROVIDE CARE.
[2020-07-21 00:37] LABS: Hematocrit 50.2 % (37.0-53.0); Hemoglobin 16.2 g/dL (13.5-17.5)
[2020-07-21 04:47] LABS: BASOPHILS ABSOLUTE AUTO 0.08 K/mm3 (0.00-0.23); BASOPHILS PERCENT AUTO 0 % (0-2); EOSINOPHILS PERCENT AUTO 0 % (0-6); Hematocrit 49.4 % (37.0-53.0); Hemoglobin 15.5 g/dL (13.5-17.5); IMMATURE GRAN ABSOLUTE AUTO 0.26 K/mm3 (0.00-0.10); IMMATURE GRAN PERCENT AUTO 1 % (0-1); LYMPHOCYTES ABSOLUTE AUTO 0.69 K/mm3 (0.84-5.20); LYMPHOCYTES PERCENT AUTO 3 % (21-46); MONOCYTES PERCENT AUTO 8 % (4-13); Mean Corpuscular HGB 31.5 pg (26.0-34.0); Mean Corpuscular HGB Conc 31.4 g/dL (31.5-36.5); Mean Corpuscular Volume 100 fL (80-100); Mean Platelet Volume 8.8 fL (9.1-12.4); NEUTROPHILS ABSOLUTE AUTO 18.54 K/mm3 (1.96-9.15); NEUTROPHILS PERCENT AUTO 88 % (41-73); Platelet Count 194 K/mm3 (150-400); RDW Coefficient Variation 12.6 % (11.7-14.2); RDW Standard Deviation 47.1 fL (35.1-46.3); Red Blood Cell Count 4.92 M/mm3 (4.30-5.90); White Blood Cell Count 21.17 K/mm3 (4.00-11.30)
[2020-07-21 05:38] LABS: Alanine Aminotransfer (ALT/SGP 399 U/L (12-78); Albumin, Blood 2.8 g/dL (3.4-5.0); Albumin/Globulin Ratio 0.6 (0.8-1.8); Alk Phos 197 U/L (50-136); Anion Gap 8 mmol/L (6-16); Aspartate Aminotrans (AST/SGOT 177 U/L (12-37); Bilirubin, Total 1.4 mg/dL (0.1-1.0); Blood Urea Nitrogen 14 mg/dL (8-24); Bun/Creatinine Ratio 19.9 (12.0-20.0); CO2, Blood 22 mmol/L (21-32); Chloride, Blood 111 mmol/L (98-108); Globulin, Blood 4.4 g/dL (2.2-4.0); Glomerular Filtration Rate >60 (60-); Glucose, Blood 109 mg/dL (70-99); Potassium, Blood 4.1 mmol/L (3.5-5.5); Sodium, Blood 141 mmol/L (136-145); Total Protein, Blood 7.2 g/dL (6.4-8.2)
--- NOTE | 2020-07-21 06:18 | NUR ---
SHIFT SUMMARY PT LETHARGIC, RESPONDS W/ GRUNTING/MOANING TO PAINFUL STIMULI. VSS. SPO2 > 92% ON 2L NC. MONITOR SHOWS SR, HR 70's-80's. ABD FIRM & DISTENDED. NGT W/ LOW INTERMITTENT SUCTION, SUCTIONING DARK BROWN OUTPUT. PT INCONTINENT OF URINE. PRN KARLA CARE/ATTENDS CHANGES PROVIDED. Q2H REPOSITIONING BY 2 STAFF MEMBERS W/ MAX ASSIST. PROTONIX GTT, NS GTT, & ZOSYN INFUSING PER ORDERS. WILL CONTINUE TO MONITOR & PROVIDE CARE UNTIL REPORT OFF TO DAY SHIFT RN.
--- NOTE | 2020-07-21 17:59 | NUR ---
INITIAL PAL CARE CONSULT NOTE - Pal care referral received for advanced care planning. EMR reviewed. Pt has an advanced directive completed approx 8 years ago naming Patric anneen, as his surrogate decision maker. Pt chose to initial paragraph stating, "I do not want my life to be prolonged by life support. I also do not want tube feedings as life support. I want my health care provider to allow me to naturlly if my health care provider and another knowledgeable health care provider confirm that I am in any of the medical conditions listed below". Those conditions are, Close to , permanently unconscious, advanced progressive illness and extraordinary suffering. Pt's POLST and current code status are FULL CODE and full treatment, which may be in disagreement with his AD, that was completed when pt was of clear mind. Pt is 89, suffering with advanced dementia and is wc bound at baseline. He lives at [facility]. He has PMH of CVA, PVD, BPH, depression and immobility. He presented to the ER with pancreatitis, SBO, obstipation, abdominal pain/nausea, elevated liver enzymes, possible gastroenteritis, atelectasis and trace jj pulmonary effusions. He is currently NPO with NG Tube to intermittent suction. He did not wake while I was in the room speaking with his SO, Wyatt. He is grimacing in his sleep and appears flushed. His abdomen is distended. When he is awake he is very confused, which is his baseline with underlying advanced dementia. His KPS score is 20-30% and his PPS score is 30%. I contacted his charlette and POA, Camelia Christina [phone], who lives in [place]. We reviewed her dad's AD and POLST and discussed that it may be time for family to review again and reconsider Code status at this time. Camelia states she and her siblings are in agreement and supportive of one another. She explained that when the POLST was completed they chose full code because they wanted to be able to decide as a family if life support would be employed and stated none of them would consider leaving their dad on life support indefinitely. We discussed that as one's health and quality of life declines these decisions and thoughts may evolve and need to be adjusted. Charlette was receptive and appreciative of the conversation. She will be in town and will come to visit dad in the am. She asked if we could talk more re: code status then. I will report off to Palliative care staff working tomorrow and request that they meet with her to follow up. I asked permission to leave some reading materials, "Hard choices for loving people" in her dad's room for her to review in prep for meeting with us and with her dad's providers tomorrow. She was agreeable to this and I did put the booklet in pt's room for her. I spoke with pt's SO who was visiting this vu at that time. I case conferenced with pt's RN before and after my visit and conversation with Camelia. Copy of pt's Advanced directive placed on pt's chart also. Plan to continue advanced care planning conversations with pt's charlette and family.
--- NOTE | 2020-07-21 18:37 | NUR ---
REPORT RECEIVED FROM ABHISHEK SANTOS AFTER LUNCH TIME. AT BEDSIDE DURING REPORT. PT WAKES UP TO VERBAL STIMULI ANSWERS YES/NO QUESTION OTHERWISE NOT REALLY CONVERSIVE, LETHARGIC IN APPEARANCE. PT HAS NG TUBE IN PLACE WITH INTERMITTENT WALL SUCTION ATTACHED. PT IS HERE FOR COLONIC/STOOL IMPACTION, PT IS ON PROTONIX GTT RECEIVES IV ABO FOR UTI, ON DAILY FEET OIL ENEMA AND IS NPO. NO ACUTE CHANGE PER REPORT. PT IS INCONTINENT OF URINE AND STOOLS ATTENDS IN PLACE, REPOSITIONED Q2HRS. NO OTHER ISSUES ENCOUNTERED FOR THE SHFIT, VITALS STABLE, PT IN BED RESTING, CALL LIGHTS IN REACH WILL REPORT TO ONCOMING SHIFT.
--- NOTE | 2020-07-21 21:34 | NUR ---
CARE ASSUMPTION PT ALERT AT TIMES, OVERALL LETHARGIC. VSS. SPO2 > 92% ON 2L NC. MONITOR SHOWS NSR, HR 80's. ABD SEVERELY DISTENDED & FIRM. BT's HYPOACTIVE. PT NPO W/ NGT IN PLACE SET TO INTERMITTENT SUCTION, DRAINING BROWN OUTPUT. PT MOANING IN RM. PRN PAIN MEDICATION PROVIDED W/ PT MOANING LESS. PT RESPONDS "YES" WHEN ASKED IF ABD FEELS BETTER. PT NOW SLEEPING IN RM. RESPONDS TO PAINFUL STIMULI, BUT DOES NOT ALWAYS OPEN EYES. PT INCONTINENT OF URINE, ATTENDS IN PLACE. Q2H REPOSITIONING. PROTONIX GTT & NS GTT INFUSING PER ORDERS. WILL CONTINUE TO MONITOR & PROVIDE CARE.
[2020-07-22 04:47] LABS: Hematocrit 45.7 % (37.0-53.0); Hemoglobin 13.9 g/dL (13.5-17.5); Mean Corpuscular HGB 31.5 pg (26.0-34.0); Mean Corpuscular HGB Conc 30.4 g/dL (31.5-36.5); Mean Corpuscular Volume 104 fL (80-100); Mean Platelet Volume 9.1 fL (9.1-12.4); Platelet Count 181 K/mm3 (150-400); RDW Coefficient Variation 12.9 % (11.7-14.2); RDW Standard Deviation 50.2 fL (35.1-46.3); Red Blood Cell Count 4.41 M/mm3 (4.30-5.90); White Blood Cell Count 19.92 K/mm3 (4.00-11.30)
[2020-07-22 05:12] LABS: Alanine Aminotransfer (ALT/SGP 231 U/L (12-78); Albumin, Blood 2.7 g/dL (3.4-5.0); Albumin/Globulin Ratio 0.6 (0.8-1.8); Alk Phos 157 U/L (50-136); Anion Gap 8 mmol/L (6-16); Aspartate Aminotrans (AST/SGOT 67 U/L (12-37); Bilirubin, Total 0.9 mg/dL (0.1-1.0); Blood Urea Nitrogen 15 mg/dL (8-24); Bun/Creatinine Ratio 20.8 (12.0-20.0); CO2, Blood 26 mmol/L (21-32); Calcium, Blood 8.1 mg/dL (8.5-10.1); Chloride, Blood 113 mmol/L (98-108); Creatinine, Blood 0.72 mg/dL (0.60-1.20); Globulin, Blood 4.2 g/dL (2.2-4.0); Glomerular Filtration Rate >60 (60-); Glucose, Blood 108 mg/dL (70-99); Magnesium, Blood 2.4 mg/dL (1.6-2.4); Potassium, Blood 3.5 mmol/L (3.5-5.5); Sodium, Blood 147 mmol/L (136-145); Total Protein, Blood 6.9 g/dL (6.4-8.2)
[2020-07-22 05:17] LABS: BAND PERCENT MAN 15 % (0-8); BASOPHILS PERCENT MAN 0 % (0-2); EOSINOPHILS PERCENT MAN 0 % (0-6); MONOCYTES ABSOLUTE MAN 0.59 K/mm3 (0.16-1.47); MONOCYTES PERCENT MAN 3 % (4-13); NEUTROPHILS ABSOLUTE MAN 19.32 K/mm3 (1.96-9.15); SEG NEUTROPHILS PERCENT MAN 82 % (41-73); TOTAL CELLS COUNTED 100
--- NOTE | 2020-07-22 06:03 | NUR ---
SHIFT SUMMARY PT ALERT, SLEEPING MAJORITY OF SHIFT. UNABLE TO ASSESS PT ORIENTATION. PT ANSWERING SOME SIMPLE Q's W/ Y/N REPONSES. PT REPORTED TO BE [place] & CONFUSED @ BASELINE. VSS. SPO2 > 92% ON 2L NC. MONITOR SHOWS NSR, HR 70's-80's. ABD CONTINUES TO BE SEVERELY DISTENDED & FIRM. NO BM THIS SHIFT. NGT W/ INTERMITTENT SUCTION, DRAINING BROWN OUTPUT. PT MEDICATED FOR PAIN X2 THIS SHIFT D/T PT MOANING IN RM. NO OTHER EVENTS. WILL CONTINUE TO MONITOR & PROVIDE CARE UNTIL REPORT OFF TO DAY SHIFT RN.
--- NOTE | 2020-07-22 09:09 | NUR ---
NG TUBE WAS AUSCILTATED VIA THIS RN AND CORRECTIONAL FOOD SERVICE SUPERVISOR, + PLACEMENT IS CONFIRMED. PT RECIEVED REGLAN PER NG, TUBE WAS CLAMPED FOR 1 HOUR. NG IS RESUMED AT LOW INT SUCTION AT THIS TIME. PT GROANING ASKED ABOUT PAIN PT STS "NO" WHEN ASKED IF HE WAS IN PAIN. NO BM THIS AM.
--- NOTE | 2020-07-22 15:28 | NUR ---
TRANSFER SUMMARY PT HAS BEEN ALERT, SLEEPY BUT AWAKENS TO VERBAL STIMULI. PT APPEARS TO BE RESTING MORE COMFORTABLY DURING THIS SHIFT THAN THE PREVIOUS SHIFT. ABD IS FIRM, BUT FIRMNESS IS DECREASING. NG IS PRODUCING GREEN LIQUID DRAINAGE TO LOW INTERMITTENT SUCTION. SCANT BM PRODUCED THIS AFTERNOON. PT BECOMES AGITATED WHEN ATTENDS IS CHANGED BEGINS HITTING AT STAFF. PT WAS MEDICATED FOR PAIN WHICH CALMED PT. DR LEIGH WAS CALLED FOR PRN ZYPREXA FOR AGITATION. FAMILY WAS UPDATED
--- NOTE | 2020-07-22 17:05 | NUR ---
TRANSFER/SHIFT SUMMARY PT TRANSFERRED FROM PCU TO MEDICAL FLOOR AT APPROX 1705. PT ARRIVED SLEEPING. ONLY WINCE/GRIMACE RESPONSES WHEN SPOKEN TO. REVIEWED PCU NURSE'S SHIFT ASSESSMENT, AND AGREE WITH HER NOTES. RECHECKED BP, TRENDING HIGH. WILL CONTINUE TO MONITOR. CALL LIGHT PLACED IN LAP. BED ALARM ON. PT APPEARS COMFORTABLE.
--- NOTE | 2020-07-22 19:30 | NUR ---
ASSUMED CARE RECEIVED REPORT FROM DANIELLE PLUMMER. ASSUMED CARE OF PT. RESTING COMFORTABLY AT THIS TIME, NO S/S ACUTE DISTRESS NOTED. NGT TO LOW-INTERMITTENT SUCTION, NO CONTENTS NOTED AT THIS TIME. PT APPEARS COMFORTABLE. DENIES NEEDS. CALL LIGHT, POSSESSIONS IN REACH, BED IN LOW POSITION WITH ALARMS ON. WILL CONTINUE TO MONITOR.
[2020-07-23 04:51] LABS: BASOPHILS ABSOLUTE AUTO 0.09 K/mm3 (0.00-0.23); BASOPHILS PERCENT AUTO 0 % (0-2); Hemoglobin 13.8 g/dL (13.5-17.5); LYMPHOCYTES ABSOLUTE AUTO 0.65 K/mm3 (0.84-5.20); LYMPHOCYTES PERCENT AUTO 3 % (21-46); MONOCYTES ABSOLUTE AUTO 1.73 K/mm3 (0.16-1.47); MONOCYTES PERCENT AUTO 8 % (4-13); Mean Corpuscular HGB 31.9 pg (26.0-34.0); Mean Corpuscular HGB Conc 31.4 g/dL (31.5-36.5); Mean Corpuscular Volume 102 fL (80-100); Mean Platelet Volume 8.8 fL (9.1-12.4); Platelet Count 203 K/mm3 (150-400); RDW Coefficient Variation 12.8 % (11.7-14.2); RDW Standard Deviation 48.8 fL (35.1-46.3); Red Blood Cell Count 4.33 M/mm3 (4.30-5.90); White Blood Cell Count 20.62 K/mm3 (4.00-11.30)
[2020-07-23 04:52] LABS: EOSINOPHILS ABSOLUTE AUTO 0.01 K/mm3 (0.00-0.68); EOSINOPHILS PERCENT AUTO 0 % (0-6); IMMATURE GRAN ABSOLUTE AUTO 0.25 K/mm3 (0.00-0.10); IMMATURE GRAN PERCENT AUTO 1 % (0-1); NEUTROPHILS ABSOLUTE AUTO 17.89 K/mm3 (1.96-9.15); NEUTROPHILS PERCENT AUTO 87 % (41-73)
[2020-07-23 05:18] LABS: Alanine Aminotransfer (ALT/SGP 143 U/L (12-78); Albumin, Blood 2.4 g/dL (3.4-5.0); Albumin/Globulin Ratio 0.5 (0.8-1.8); Alk Phos 144 U/L (50-136); Anion Gap 5 mmol/L (6-16); Aspartate Aminotrans (AST/SGOT 31 U/L (12-37); Bilirubin, Total 0.8 mg/dL (0.1-1.0); Blood Urea Nitrogen 13 mg/dL (8-24); Bun/Creatinine Ratio 18.4 (12.0-20.0); CO2, Blood 30 mmol/L (21-32); Calcium, Blood 8.3 mg/dL (8.5-10.1); Chloride, Blood 111 mmol/L (98-108); Creatinine, Blood 0.71 mg/dL (0.60-1.20); Globulin, Blood 4.5 g/dL (2.2-4.0); Glomerular Filtration Rate >60 (60-); Glucose, Blood 106 mg/dL (70-99); Magnesium, Blood 2.4 mg/dL (1.6-2.4); Sodium, Blood 146 mmol/L (136-145); Total Protein, Blood 6.9 g/dL (6.4-8.2)
--- NOTE | 2020-07-23 05:44 | NUR ---
SHIFT SUMMARY PT ASLEEP AT THIS TIME, SLEPT T/O NIGHT. NGT REMAINS SET TO LOW-INTERMITTENT SUCTION, 290 MLS OF GREEN-BROWN GASTRIC CONTENTS REMOVED. NO BMS THIS SHIFT. PT ATTEMPTED TO PULL NGT, REMINDED PT THAT IT IS TO HELP HIS STOMACH FEEL BETTER, INDICATED UNDERSTANDING. EASILY RE-DIRECTABLE. PT HAS HAD NO ACUTE CHANGES IN CONDITION T/O NIGHT. VS REVIEWED. PROTONIX DRIP ONGOING. CALL LIGHT, POSSESSIONS IN REACH, BED IN LOW POSITION WITH ALARMS ON. WILL CONTINUE TO MONITOR AND PROVIDE CARE NEEDED UNTIL DAY RN ASSUMES CARE.
--- NOTE | 2020-07-23 16:48 | NUR ---
PATIENT HAS BEEN PLEASANT AND COOPERATIVE WITH STAFF THIS SHIFT. HE HAS HAD NO EPISODES OF AGGRESIVENESS WITH STAFF OR OTHERS. HE HAS HAD A FRIEND AND HIS DAUGHTER AT HIS BEDSIDE FOR THE MAJORITY OF THE SHIFT. SBP WAS ELEVATED IN THE 175s THIS MORNING AND DR LEIGH NOTIFIED AND PROVIDED A NEW ORDER FOR A AN ANTIHYPERTENSIVE TO BE ADMINISTERED PRN. PATIENT CONTINUES ON IV ABX AND IVF AND IS TOLERATING WITHOUT ANY INDICATION OF ADVERSE REACTIONS NOTED OR REPORTED. ND ENEMA ADMINISTERED PER EMAR THIS AM AND THE PATIENT DID HAVE A LARGE BP; SOFT SERVE CONSISTANCY. PATIENT IS ALERT TO HIMSELF AND ONLY MOANS OR AT MOST SAYS "NO". PATIENT CONTINUES TO HAVE A NG TUBE FOR LOW-INTERMITTENT SUCTION WITH DARK GREEN DRAINAGE. PATIENT RESTING IN HIS ROOM AT THIS TIME. WILL CONTINUE TO MONITOR AND PROVIDE CARE NEEDED.
--- NOTE | 2020-07-23 19:20 | NUR ---
ASSUMED CARE RECEIVED REPORT FROM DANIELLE BLACK. ASSUMED CARE OF PT. NO S/S ACUTE DISTRESS NOTED, RESPS EVEN AND UNLABORED. DENIES NEEDS. CALL LIGHT, POSSESSIONS IN REACH. BED IN LOW POSITION WITH ALARMS ON. PROTONIX DRIP ONGOING, NG TUBE TO LOW-INTERMITTENT SUCTION. WILL CONTINUE TO MONITOR.
--- NOTE | 2020-07-23 22:24 | NUR ---
THIS RN IN ROOM ADMINISTERING MEDICATION PER NG TUBE. PT TOLERATED FLUSH WELL, BEGAN ADMINISTERING MEDICATION. PT BEGAN COUGHING, SHOWING S/S ASPIRATION. STOPPED GIVING MEDICATIONS. SUCTION RESTARTED, WITH NO GASTRIC CONTENTS RETURNED. THIS RN AND LANDSCAPE CREW LEADER IN ROOM RE-INSERTING A NEW NG TUBE. PT TOLERATED FAIRLY. WILL NOTIFY PROVIDER AND OBTAIN ORDER FOR ABD XRAY TO VERIFY PLACEMENT.
--- NOTE | 2020-07-23 23:35 | NUR ---
THIS RN INFORMED DR. LAO OF PT'S COUGHING DURING MEDICATION ADMINISTRATION PER NG TUBE AND REINSERTION OF NEW TUBE. ORDERS RECEIVED. CONTINUE TO MONITOR.
[2020-07-24 04:47] LABS: Hematocrit 42.5 % (37.0-53.0); Hemoglobin 13.3 g/dL (13.5-17.5); Mean Corpuscular HGB 31.6 pg (26.0-34.0); Mean Corpuscular HGB Conc 31.3 g/dL (31.5-36.5); Mean Corpuscular Volume 101 fL (80-100); Mean Platelet Volume 9.4 fL (9.1-12.4); Platelet Count 192 K/mm3 (150-400); RDW Standard Deviation 48.6 fL (35.1-46.3); Red Blood Cell Count 4.21 M/mm3 (4.30-5.90); White Blood Cell Count 18.39 K/mm3 (4.00-11.30)
[2020-07-24 05:09] LABS: Alanine Aminotransfer (ALT/SGP 86 U/L (12-78); Albumin, Blood 2.3 g/dL (3.4-5.0); Albumin/Globulin Ratio 0.5 (0.8-1.8); Alk Phos 139 U/L (50-136); Anion Gap 5 mmol/L (6-16); Aspartate Aminotrans (AST/SGOT 24 U/L (12-37); Bilirubin, Total 0.7 mg/dL (0.1-1.0); Blood Urea Nitrogen 12 mg/dL (8-24); Bun/Creatinine Ratio 17.6 (12.0-20.0); CO2, Blood 30 mmol/L (21-32); Chloride, Blood 111 mmol/L (98-108); Creatinine, Blood 0.68 mg/dL (0.60-1.20); Globulin, Blood 4.4 g/dL (2.2-4.0); Glomerular Filtration Rate >60 (60-); Glucose, Blood 147 mg/dL (70-99); Potassium, Blood 2.6 mmol/L (3.5-5.5); Sodium, Blood 146 mmol/L (136-145); Total Protein, Blood 6.7 g/dL (6.4-8.2)
--- NOTE | 2020-07-24 06:40 | NUR ---
SPOKE TO DR. SABA REGARDING PT'S POTASSIUM OF 2.6. ORDERS RECEIVED.
--- NOTE | 2020-07-24 08:00 | NUR ---
SHIFT SUMMARY PT RESTING COMFORTABLY AT THIS TIME, NO S/S ACUTE DISTRESS NOTED. WAS MONITORED EVERY 1-2 HOURS WITH NEEDS MET. NG TUBE ADVANCED AND CONTINUES ON LOW-INTERMITTENT SUCTION, ABD XRAY RESULTS FOR PLACEMENT PENDING. PROTONIX DRIP AND IVF ONGOING. VS AND LABS REVIEWED. PT TO RECEIVE KCL IVPB TODAY. MEDICATED FOR PAIN X1, EFFECTIVE. PT MODERATELY AGITATED WITH ATTENDS CHANGE THIS AM, EASILY RE-DIRECTABLE WHEN CARES ARE EXPLAINED. DENIES NEEDS AT THIS TIME. CALL LIGHT, POSSESSIONS IN REACH, BED IN LOW POSITION WITH ALARMS ON. REPORT GIVEN TO DANIELLE BARTH.
[2020-07-24 08:17] LABS: CHOL/HDL RATIO 8.6; Cholesterol 138 mg/dL (50-200); HDL Cholesterol 16 mg/dL (>39); LDL/HDL RATIO 6.1; Low Density Lipoprotein Chol 97 mg/dL (0-110); Triglycerides 123 mg/dL (30-160); Very Low Density Lipoprot Chol 24 mg/dL (6-32)
--- NOTE | 2020-07-24 08:31 | NUR ---
PT TACHYPNEIC, WHEEZES T/O, 2+ EDEMA BLE, GENERALIZED EDEMA, 2L O2 NC. DR. CURRY NOTIFIED, RECIEVED ORDERS FOR IV LASIX, NEBS PER R/T, FLUIDS D/C'D. POWERGLIDE PLACED BY CN, IV LASIX GIVEN, RT NOTIFIED OF ORDERS. PT IS FULL CODE.
--- NOTE | 2020-07-24 11:36 | NUR ---
PT BREATHING HAS IMPROVED POST INTERVENTIONS. HE IS NO LONGER TACHYPNEIC, WHEEZES HAVE DECREASED. DR. CURRY ROUNDED AND SPOKE WITH DAUGHTER IN ROOM.
--- NOTE | 2020-07-24 16:56 | NUR ---
SHIFT SUMMARY. PT HAS BEEN MORE ALERT THIS EVENING, PT WAS VERY LETHARGIC THIS AM AND AFTERNOON. BREATHING CONTINUES TO BE IMPROVED. DAUGHTER AT BEDSIDE THIS AM AND AFTERNOON, SHE REPORTS THAT SHE WILL GIVE AN ANSWER FAR CODE STATUS TOMORROW, SHE FEELS THAT SHE WOULD NOT WANT HER FATHER TO HAVE CPR, SHE IS CONFIRMING THIS WITH THE REST OF HER FAMILY. Vandana CHILDERS RN IS ASSUMING CARE OF PT AT THIS TIME.
--- NOTE | 2020-07-24 20:35 | NUR ---
ASSUMING CARE AND END OF SHIFT: ASSUMED CARE FROM Albert TORRES RN AT 1700. BEDSIDE REPORT GIVEN. PATIENT'S REPEAT KCL RESULTED AND NEW ORDERS ENTERED BY DR. CURRY. PATIENT APPEARED COMFORTABLE THROUGHOUT THE REST OF THE SHIFT. PATIENT CONTINUES TO HAVE DARK GREEN OUTPUT FROM THE NG TUBE. PATIENT'S SIGNIFCANT OTHER REQUESTED PAIN MEDICATION FOR THE PATIENT AT CHANGE OF SHIFT. PATIENT CALMLY LYING IN BED WITH NO SIGNS OF PAIN. THIS REQUEST PASSED ON TO MANUFACTURERS AGENT RNGagan.
--- NOTE | 2020-07-24 21:45 | NUR ---
[address] LAO AND INFORMED OF IMAGING RESULTS OF NG TUBE PLACEMENT. DR LAO OK'D MEDS VIA NG TUBE ONLY, NO FEEDING AT THIS TIME. WCTM.
[2020-07-25 04:45] LABS: Anion Gap 4 mmol/L (6-16); Blood Urea Nitrogen 14 mg/dL (8-24); Bun/Creatinine Ratio 18.1 (12.0-20.0); CO2, Blood 35 mmol/L (21-32); Chloride, Blood 109 mmol/L (98-108); Creatinine, Blood 0.77 mg/dL (0.60-1.20); Glomerular Filtration Rate >60 (60-); Glucose, Blood 117 mg/dL (70-99); Potassium, Blood 3.2 mmol/L (3.5-5.5); Sodium, Blood 148 mmol/L (136-145)
--- NOTE | 2020-07-25 05:41 | NUR ---
JOY LOADING MACHINE OPERATOR SUMMARY PT HAD AN UNEVENTFUL NIGHT W NG TUBE IN PLACE W SUCTION PRODUCING 700ML OF DARK GREEN FLUID. PT ABLE TO MAKE NEEDS KNOWN ONLY IF CHECKED ON FREQUENTLY AND ASKED YES OR NO QUESTIONS. WCTM.
--- NOTE | 2020-07-25 09:52 | NUR ---
Echocardiogram using 0.50ml of Definity contrast performed.
--- NOTE | 2020-07-25 10:00 | NUR ---
Palliative Care visit - Follow up on advanced care planning and CODE status discussion with charlette, who is pt's medical POA. She had reviewed written info I provided last week re: advanced care planning as we age and acrue multiple chronic conditions. She and her brother would like to change pt's code status to DNR/DNI but another family member is resistant and charlette would like all to be in agreement. We reviewed her dad's AD completed in 2011, when he was very clear. He named Camelia as POA and his grandson, Mohan as his alternate. Pt cont to have NG to suction. He had a difficult day yesterday with poss extra fluid and resp distress. IV fluids d/c'd and lasix ordered/given with improvement noted. Pt appears flushed but respirations are only sl labored, lying supine with hob elevated. Feet with 3+ pitting edema, increased on Right. Pt does not appear to be in pain as he did when I saw him last three days ago. He appears calm/sleeping without restlessness noted. He responds to his daughter when woken. He did not make eye contact with me but turned face towards me when I was providing personal care, warm washcloth to eyes and face. Charlette and I had a very good conversation re: advanced care planning and we reviewed a blank POLST for her to review with her family. Plan is for charlette to continue conversation with other family members and contact me when she would like help with completing the POLST or when they would like a CODE status change. Much support offered. Updated RN after my visit.
[2020-07-25 10:39] LABS: Magnesium, Blood 2.3 mg/dL (1.6-2.4)
[2020-07-25 10:40] LABS: Phosphorus, Blood 1.7 mg/dL (2.5-4.9)
--- NOTE | 2020-07-25 18:39 | NUR ---
PATIENT IS ALERT. ORIENTED TO FAMILY AND FOLLOWING DIRECTIONS. [place], THE PATIENT'S DAUGHTER DID BRING IN THE PATIENT'S HEARING AIDS. POTASSIUM SUPPLEMENTS WERE GIVEN TODAY WITH A RESULTING BLOOD POTASSIUM LEVEL OF 3.8. CLINIMAZ WAS STARTED THIS AFTERNOON. PATIENT IS NPO. [facility] IS CONSULTED. CONDOM CATH IS IN PLACE AND PATENT. PALLIATIVE CARE IS CONSULTED AND HAS BEEN COMUNICATING WITH THE PATIENT'S DAUGHTER. NO C/O PAIN. WILL CONTINUE TO [facility]
--- NOTE | 2020-07-25 20:30 | NUR ---
ASSUMED CARE. ELIOT IS LAYING IN BED RESTING. GAMBELL. AWAKES WHEN SPOKEN TO. WILL ANSWER SOME QUESTIONS WHEN ASKED MOSTLY YES AND NO. VERY LETHARGIC LIKE. GAMBELL. DENIES ANY PAIN OR DISCOMFORT. LUNG SOUNDS ARE TIGHT AND DIMINISHED T/O. COULD BE THAT HE DOES NOT TAKE A VERY DEEP BREATH WHEN ASKED. HR SINUS. ABD ROUND DISTENDED, FIRM, ABSENT BT, NO NAUSEA. NG TUBE IN PLACE AT LOW SUCTION, YELLOW BROWNISH DRAINAGE NOTED IN CANISTER. CONDOM CATH IN PLACE AND DRAINING CLEAR YELLOW. SKIN PWD. DENIES ANY NEEDS AT THIS TIME. BED ALARM IS ON, CALL LIGHT IN REACH.
--- NOTE | 2020-07-26 05:22 | NUR ---
SHIFT SUMMARY: ELIOT ALERT AT TIMES, BUT HAS BEEN SLEEPING MOST OF SHIFT. POARCH. HE WILL ANSWER TO HIS NAME AND YES TO NO QUESTIONS. LUNG SOUNDS ARE DIMINISHED. ABDOMIN ROUND, DISTENDED. FIRM WITH ABSENT BT. NG TUBE IN PLACE AT LOW SUCTION DRAINING BROWN YELLOW, 170CC OUT THIS SHIFT. IV CLINIMAX CONTINUES TO INFUSE WITH NO ISSUES. NO PAIN HAD BEEN NOTED OR NAUSEA. VS WNL, AFEBRILE. CONDOM CATHETER IN PLACE AND DOING WELL. ATTENDS REMAINED DRY. SLEPT MOST ALL SHIFT, NO OTHER CHANGES TO REPORT. CALL LIGHT IN REACH, BED ALARM ON.
[2020-07-26 05:30] LABS: Anion Gap 5 mmol/L (6-16); Blood Urea Nitrogen 18 mg/dL (8-24); Bun/Creatinine Ratio 26.4 (12.0-20.0); CO2, Blood 33 mmol/L (21-32); Calcium, Blood 8.5 mg/dL (8.5-10.1); Chloride, Blood 107 mmol/L (98-108); Creatinine, Blood 0.68 mg/dL (0.60-1.20); Glomerular Filtration Rate >60 (60-); Glucose, Blood 128 mg/dL (70-99); Magnesium, Blood 2.4 mg/dL (1.6-2.4); Phosphorus, Blood 2.6 mg/dL (2.5-4.9); Potassium, Blood 3.6 mmol/L (3.5-5.5); Sodium, Blood 145 mmol/L (136-145)
--- NOTE | 2020-07-26 09:33 | NUR ---
LEFT MESSAGE WITH DR PERERA'S OFFICE TO HAVE HIM COME AND SEE PT PER DR RODRIGUEZ, THEY SAY THEY WILL GET THE MESSAGE TO DR PERERA
--- NOTE | 2020-07-26 13:29 | NUR ---
NGT WAS DISLODGED DURING PT'S BEDBATH. DR CURRY CALLED, HE STATES THAT SINCE PT'S ABD IS SOFT THIS SHIFT AND DECREASED IN DISTENSION AND OUTPUT FROM NGT HAD BEEN VERY LOW, KEEP IT OUT FOR NOW AND MONITOR PT
--- NOTE | 2020-07-26 19:14 | NUR ---
SHIFT SUMMARY JACKELINE WAS VERY LETHARGIC THIS MORNING, OPENED HIS EYES BRIEFLY TO QUESTIONS AND ANSWERED YES/NO. DAUGHTER VISITED. IN EVENING, SIGNIFICANT OTHER ANDREA VISITED, AND PT MORE AWAKE THIS EVENING. HAD BED BATH AND NGT BECAME DISLODGED, DR CURRY CALLED AND SAYS TO HAVE PT TRY TRIAL OF NO NGT. FAMILY UPDATED. CLINIMIX AND LIPIDS RUNNING. GOT TWO DOSES OF IV DILAUDID FOR PAIN, BUT UNABLE TO STATE LOCATION OF PAIN. KEPT NPO. CALLED DR PERERA TO COME SEE PT PER DR CURRY. CONDOM CATH REPLACED. NO BM. REPORT GIVEN TO NIGHT NURSE
--- NOTE | 2020-07-26 20:09 | NUR ---
ASSUMED CARE. JACKELINE HAS BEEN MOANING OFF AND ON, BUT IS UNABLE TO STATE WHETHER HE HURTS OR NOT. EVERYTIME WHEN I ASK IF HE IS FEELING OK HE STATES YES. WITH REPOSITIONING HE DOES TEND TO MOAN LIKE IN PAIN. GAVE HIM DILUDID PER ORDERS, WILL CONTINUE TO MONITOR. LIPIDS COMPLETE. CLINIMAX STILL GOING. CALL LIGHT IN REACH, BED ALARM IS ON.
[2020-07-27 05:56] LABS: Anion Gap 5 mmol/L (6-16); Blood Urea Nitrogen 24 mg/dL (8-24); Bun/Creatinine Ratio 29.6 (12.0-20.0); CO2, Blood 33 mmol/L (21-32); Calcium, Blood 8.5 mg/dL (8.5-10.1); Chloride, Blood 105 mmol/L (98-108); Creatinine, Blood 0.81 mg/dL (0.60-1.20); Glomerular Filtration Rate >60 (60-); Glucose, Blood 123 mg/dL (70-99); Magnesium, Blood 2.5 mg/dL (1.6-2.4); Phosphorus, Blood 3.5 mg/dL (2.5-4.9); Sodium, Blood 143 mmol/L (136-145); Triglycerides 136 mg/dL (30-160)
--- NOTE | 2020-07-27 06:01 | NUR ---
SHIFT SUMMARY: ELIOT HAS BEEN PRETTY LETHARGIC ALL NIGHT, HE DOES WAKE UP WHEN SPOKEN TO, AND WILL ANSWER A QUESTION OR TWO. THEN HE FALLS RIGHT BACK TO SLEEP. HE WILL MOAN OCCATIONALLY BUT IS UNABLE TO ANSWER IF HE IS HURTING. GAVE HIM PAIN MEDICATION JUST IN CASE AND STILL NO CHANGES IN THE MOANING. ABDOMIN STILL SOFT, NOT RIGID, TENDER TO PALPITATE. CLINIMAX STILL INFUSING. CONDOM CATH IN PLACE. REPOSITION PRN. BLOOD SUGARS IN THE 100'S. VS WNL, AFEBRILE. CALL LIGHT IN REACH.
--- NOTE | 2020-07-27 08:45 | NUR ---
PER DR CURRY, I CALLED DR ACEVEDO OFFICE (SURGEON PUMPING PLANT OPERATOR) AND AGAIN REQUESTED HIM TO COME AND SEE PT. THEY WILL HAND ALONG MESSAGE TO DR SIMPSON
--- NOTE | 2020-07-27 14:45 | NUR ---
Pal Care note - Return visit made when daughter arrived with newly completed POLST that we had been working on with her. We reviewed POLST and signature obtained. Camelia and Davon, pt's children have chosen DNR & Limited interventions. Pt was being transferred to [facility] for transport to radiology dept for CT when I arrived. Charlette reports that he just had a large BM and she was happy that his gut was moving and working better this afternoon. Copies of POLST made and order change entered per EVA and Dr Sanchez's VO. Charlette was given the original POLST and a copy for [facility] and copy placed on chart. Copy sent to medical records to be scanned into EMR also. Charlette mentioned that if pt's condition were to decline they would be receptive to talking about options in goals and levels of care. , RN and I have all touched on EOL care and s/s management/comfort care if it appeared pt was suffering and would not be able to recover to his prior level of function and health status.
--- NOTE | 2020-07-27 19:13 | NUR ---
SHIFT SUMMARY JACKELINE WENT TO CT SCAN TODAY. SOME MOANING, RECEIVED 2 DOSES OF IV DILAUDID AND IV ZOFRAN. HAD LARGE BM WHICH SEEMED TO MAKE HIM MORE COMFOPRTABLE. DAUGHTER AND GF VISITED TODAY. Q2 TURN, CONDOM CATH STILL IN PLACE. STILL ON 3L OXYGEN. REPORT GIVEN TO NIGHT NURSE
--- NOTE | 2020-07-27 20:27 | NUR ---
ASSUMED CARE. JACKELINE IS MORE ALERT WITH HIS GIRLFRIEND NEXT TO HIM. HE RESPONDS TO HER AND WILL OPEN HIS EYES. WHEN ASKED IF EVERYTHING IS OK HE WOULD NOT ANSWER, BUT TOLD HIS GIRLFRIEND YES. ABDOMIN SOFT, MILD DISTENTION, TENDER WHEN PALPATING THE UPPER QUADRANTS. WILL MEDICATE FOR PAIN. LUNG SOUNDS DIMINISHED. CLINIMAX INFUSING ALONG WITH LIPIDS. CONDOM CATH IN PLACE. REPOSITIONED ON THE LEFT SIDE. NO SKIN BREAKDOWN NOTED. EDEMA BLE +3 ELEVATED ON PILLOWS. POWERGLIDE DRESSING CHANGED PER PROTOCOLS, SITE LOOKS CLEAR OF ANY INFECTIONS. CALL LIGHT IS IN REACH, WILL CONTINUE TO MONITOR.
[2020-07-28 05:04] LABS: Anion Gap 5 mmol/L (6-16); Blood Urea Nitrogen 26 mg/dL (8-24); Bun/Creatinine Ratio 35.2 (12.0-20.0); CO2, Blood 31 mmol/L (21-32); Calcium, Blood 8.8 mg/dL (8.5-10.1); Chloride, Blood 107 mmol/L (98-108); Creatinine, Blood 0.74 mg/dL (0.60-1.20); Glomerular Filtration Rate >60 (60-); Glucose, Blood 133 mg/dL (70-99); Magnesium, Blood 2.5 mg/dL (1.6-2.4); Potassium, Blood 4.4 mmol/L (3.5-5.5); Sodium, Blood 143 mmol/L (136-145)
--- NOTE | 2020-07-28 06:23 | NUR ---
SHIFT SUMMARY: JACKELINE HAS BEEN SLIGHTLY MORE ALERT, WAS ABLE TO VERBALIZE PAIN AND DISCOMFORT, BUT NOTHING ELSE. HE WOULD JUST SAY NO IF HE DOES NOT LIKE SOMETHING TO BE DONE. BUE STILL HAVE RED AREAS WHERE IV'S HAVE BLOWN AND CAUSED INFLAMATION. LUNG SOUNDS DIMINISHED, THIS AM BREATH SOUNDS RATTLING. UNABLE TO SUCTION SECREATIONS. VS WNL, AFEBRILE. BLOOD SUGARS HAVE REMAINED IN THE 100'S AND STABLE. INTAKE OF IV FLUIDS 1953. OUTPUT 1400 OF ORANGE URINE IN CONDOM CATH. POWERGLIDE THIS AM DID NOT DRAW DISPITE GOOD FLUSHING. HAD TO DO PERIPHERAL LAB DRAW. EDEMA IN BLE, ELEVATED ON PILLOWS. STILL MOANING EVERY NOW AND THEN, BUT IS UNABLE TO STATES WHAT HE WANTS OR IF SOMETHING IS WRONG. HAVE GIVEN PAIN MEDS X3 WHICH HAS HELPED HE CALM DOWN. ZOFRAN X1. NO OTHER CHANGES TO REPORT THIS SHIFT. CALL LIGHT IS IN REACH.
--- NOTE | 2020-07-28 17:00 | NUR ---
NO ACUTE CHANGES TO PT THIS SHIFT. HE HAS SLEPT MOST OF THE DAY. PT IS ABLE TO TAKE WATER SWABS WHICH HE ENJOYS. FAMILY AT BEDSIDE.
--- NOTE | 2020-07-29 04:01 | NUR ---
RECORDINGS LIBRARIAN SUMMARY APPEARED TO SLEEP T/O SHIFT. VERBALIZES PAIN DURING REPOSITIONING, MEDICATED PER EMAR X2. ORAL CARE WITH GREEN SWABS. CONTINUES TO HAVE SHALLOW BREATHING, CURRENTLY ON 3L VIA NC. VSS. NO ACUTE CHANGES THIS SHIFT. BED IN LOWEST POSITION WITH CALL LIGHT IN REACH. WILL CONTINUE TO MONITOR AND REPORT TO ONCOMING RN.
[2020-07-29 04:56] LABS: Anion Gap 3 mmol/L (6-16); Blood Urea Nitrogen 28 mg/dL (8-24); Bun/Creatinine Ratio 33.5 (12.0-20.0); CO2, Blood 33 mmol/L (21-32); Calcium, Blood 8.2 mg/dL (8.5-10.1); Chloride, Blood 106 mmol/L (98-108); Creatinine, Blood 0.84 mg/dL (0.60-1.20); Glomerular Filtration Rate >60 (60-); Glucose, Blood 130 mg/dL (70-99); Potassium, Blood 4.4 mmol/L (3.5-5.5); Sodium, Blood 142 mmol/L (136-145)
--- NOTE | 2020-07-29 18:39 | NUR ---
SHIFT SUMMARY NO ACUTE CONCERNS. PATIENT'S FAMILY IN WITH THE PATIENT AT THIS TIME. HE DOES NOT COMMUNICATE, BUT DOES NOT GIVE OFF ANY SIGNS OF PAIN OR DISCOMFORT AT THIS TIME. HE HAS EATEN JELLO TWICE WITH HIS FAMILY.
--- NOTE | 2020-07-30 04:37 | NUR ---
SHIFT SUMMARY NO ACUTE CHANGES THIS SHIFT, PT MEDICATED FOR PAIN X2. PT SLEPT T/O SHIFT. PT IS LAYING IN BED WITH EYES CLOSED, EVEN AND UNLABORED RESPIRATIONS. BED IN LOWERED POSITION WITH BED ALARM IN PLACE. CALL LIGHT AND PERSONAL ITEMS WITHIN REACH. NO APPARENT NEEDS OR DISTRESS AT THIS TIME, WILL CONTINUE TO MONITOR UNTIL REPORT GIVEN TO DAY RN.
[2020-07-30 04:47] LABS: BASOPHILS ABSOLUTE AUTO 0.12 K/mm3 (0.00-0.23); BASOPHILS PERCENT AUTO 1 % (0-2); EOSINOPHILS ABSOLUTE AUTO 0.34 K/mm3 (0.00-0.68); EOSINOPHILS PERCENT AUTO 2 % (0-6); Hemoglobin 11.6 g/dL (13.5-17.5); IMMATURE GRAN ABSOLUTE AUTO 0.71 K/mm3 (0.00-0.10); IMMATURE GRAN PERCENT AUTO 5 % (0-1); LYMPHOCYTES ABSOLUTE AUTO 1.08 K/mm3 (0.84-5.20); LYMPHOCYTES PERCENT AUTO 7 % (21-46); MONOCYTES ABSOLUTE AUTO 1.42 K/mm3 (0.16-1.47); MONOCYTES PERCENT AUTO 9 % (4-13); Mean Corpuscular HGB 31.2 pg (26.0-34.0); Mean Corpuscular HGB Conc 31.4 g/dL (31.5-36.5); Mean Corpuscular Volume 100 fL (80-100); Mean Platelet Volume 10.5 fL (9.1-12.4); NEUTROPHILS ABSOLUTE AUTO 12.15 K/mm3 (1.96-9.15); NEUTROPHILS PERCENT AUTO 77 % (41-73); Platelet Count 314 K/mm3 (150-400); RDW Coefficient Variation 12.9 % (11.7-14.2); RDW Standard Deviation 47.7 fL (35.1-46.3); Red Blood Cell Count 3.72 M/mm3 (4.30-5.90); White Blood Cell Count 15.82 K/mm3 (4.00-11.30)
[2020-07-30 05:11] LABS: Alanine Aminotransfer (ALT/SGP 51 U/L (12-78); Albumin, Blood 1.9 g/dL (3.4-5.0); Albumin/Globulin Ratio 0.4 (0.8-1.8); Alk Phos 108 U/L (50-136); Anion Gap 5 mmol/L (6-16); Aspartate Aminotrans (AST/SGOT 54 U/L (12-37); Bilirubin, Total 0.3 mg/dL (0.1-1.0); Blood Urea Nitrogen 23 mg/dL (8-24); Bun/Creatinine Ratio 38.4 (12.0-20.0); CO2, Blood 29 mmol/L (21-32); Calcium, Blood 8.2 mg/dL (8.5-10.1); Chloride, Blood 103 mmol/L (98-108); Globulin, Blood 4.6 g/dL (2.2-4.0); Glomerular Filtration Rate >60 (60-); Glucose, Blood 148 mg/dL (70-99); Potassium, Blood 4.1 mmol/L (3.5-5.5); Sodium, Blood 137 mmol/L (136-145); Total Protein, Blood 6.5 g/dL (6.4-8.2)
--- NOTE | 2020-07-30 19:13 | NUR ---
Shift Summary A/O to self and family. 2-3 person max assist with repositioning d/t stiffness and rigidity. Patient also resists being repositioned and grabs onto staff arms/hands aggressively. HAMILTON to left ear. Clinimix @ 100 with fat emulsion @ 25. Tolerating PO meals well with feeding assistance. No acute changes or concern. Report given to oncoming RN.
--- NOTE | 2020-07-31 04:44 | NUR ---
SHIFT SUMMARY NO ACUTE CHANGES THIS. MEDICATED FOR PAIN X4. REPOSITIONED Q2H WITH PILLOWS FOR SUPPORT. MEPILEX APPLIED TO REDDENED AREA ON COCCYX. PT HAS BEEN MOANING AND GRUNTING MORE SO THAN LAST NIGHT. PT IS LAYING IN BED WITH EYES CLOSED, HOB ELEVATED, LIMBS ELEVATED WITH PILLOWS, EVEN AND UNLABORED RESPIRATIONS. BED IN LOWERED POSITION WITH BED ALARM IN PLACE. CALL LIGHT AND PERSONAL ITEMS WITHIN REACH. NO APPARENT NEEDS OR DISTRESS AT THIS TIME, WILL CONTINUE TO MONITOR UNTIL REPORT GIVEN TO DAY RN.
--- NOTE | 2020-07-31 04:59 | NUR ---
0500 PROVIDER CALLED D/T PT STILL IN PAIN, DR. CAMPOS ORDERED FENTANYL.
--- NOTE | 2020-07-31 16:59 | NUR ---
Shift Summary Medicated for pain x 2 this shift per EMAR, appears to provide adequate relief. TQ2 and as needed for comfort. Patient able to answer one word responses when speaking into R ear where hearing aids are in. Daughter has been in and anticipating discharge back to [facility] where patient resides. This has been conveyed to firmware architectDANIELLE Zazueta. Oxygen has been titrated down and patient is currently on RA, tolerating well with oxygen sats @ 95%. Condom cath replaced today, intact and draining well. IV nutrition and abx d/c'd. No additional changes, will continue to monitor.
[2020-08-01 04:52] LABS: Hematocrit 36.6 % (37.0-53.0); Hemoglobin 11.7 g/dL (13.5-17.5); Mean Corpuscular HGB 31.5 pg (26.0-34.0); Mean Corpuscular Volume 99 fL (80-100); Mean Platelet Volume 10.7 fL (9.1-12.4); Platelet Count 377 K/mm3 (150-400); RDW Coefficient Variation 12.6 % (11.7-14.2); RDW Standard Deviation 45.5 fL (35.1-46.3); Red Blood Cell Count 3.71 M/mm3 (4.30-5.90); White Blood Cell Count 14.09 K/mm3 (4.00-11.30)
--- NOTE | 2020-08-01 04:57 | NUR ---
SHIFT SUMMARY NO ACUTE CHANGES THIS SHIFT. NEW POWERGLIDE PLACED D/T PRIOR POWERGLIDE INFILTRATING. PT IS MORE ALERT THIS SHIFT THAN THIS RN'S PREVIOUS SHIFT. MEDICATED FOR PAIN X2. PT IS LAYING IN BED WITH EYES CLOSED, EVEN AND UBLABORED RESPIRATIONS. BED IN LOWERED POSITION WITH BED ALARM IN PLACE. CALL LIGHT AND PERSONAL ITEMS WITHIN REACH. NO APPARENT NEEDS OR DISTRESS AT THIS TIME, WILL CONTINUE TO MONITOR UNTIL REPORT GIVEN TO DAY RN.
[2020-08-01 05:10] LABS: Anion Gap 4 mmol/L (6-16); Blood Urea Nitrogen 19 mg/dL (8-24); Bun/Creatinine Ratio 30.4 (12.0-20.0); CO2, Blood 29 mmol/L (21-32); Calcium, Blood 8.3 mg/dL (8.5-10.1); Chloride, Blood 102 mmol/L (98-108); Creatinine, Blood 0.63 mg/dL (0.60-1.20); Glomerular Filtration Rate >60 (60-); Glucose, Blood 104 mg/dL (70-99); Magnesium, Blood 2.3 mg/dL (1.6-2.4); Potassium, Blood 4.2 mmol/L (3.5-5.5); Sodium, Blood 135 mmol/L (136-145)
[2020-08-01 05:30] LABS: BAND PERCENT MAN 2 % (0-8); BASOPHILS ABSOLUTE MAN 0.14 K/mm3 (0.00-0.23); BASOPHILS PERCENT MAN 1 % (0-2); EOSINOPHILS ABSOLUTE MAN 0.42 K/mm3 (0.00-0.68); EOSINOPHILS PERCENT MAN 3 % (0-6); LYMPHOCYTES PERCENT MAN 5 % (21-46); METAMYELOCYTE ABSOLUTE MAN 0.56 K/mm3 (0.00-0.00); METAMYELOCYTE PERCENT MAN 4 % (0-0); MONOCYTES ABSOLUTE MAN 0.84 K/mm3 (0.16-1.47); MONOCYTES PERCENT MAN 6 % (4-13); NEUTROPHILS ABSOLUTE MAN 11.41 K/mm3 (1.96-9.15); SEG NEUTROPHILS PERCENT MAN 79 % (41-73); TOTAL CELLS COUNTED 100
--- NOTE | 2020-08-01 13:40 | NUR ---
Received report from noc nurse, denied pain, rm air, saline pwr gld, cath draining to gravity, [facility] called to confirm no orders written yet but plan in place to return, will keep her up todate, remains drowsy, covid test taken and sent to lab
--- NOTE | 2020-08-01 14:39 | NUR ---
family asked for soup, aid asked kitchen for it, mean while provided yogurt and jello from pantry, declined broth, will continue to monitor and treat, family informed that pt is tranfering back to , staff working on med rec
[2020-08-01] MEDS ORDERED: DULCOLAX5 MG PO (14:49)
--- NOTE | 2020-08-01 16:10 | NUR ---
discharged, transported via med transport delmi ochoa removed no indication of break in line, called report to nurse who knew pt, acknowleged receipt of med list, sleepy, responds to verbal stimuli, family took one of the hearing aids and all the belongsings
== END 2020-08-01 15:57 | DRG 871 ==
LOC: ER 15:36 → MEDS 18:47 → PCU 18:47 → MEDS 07-22 16:57 → ENPENDDIS 08-01 14:10 → MEDS 08-01 15:57
PROVIDERS: Emergency Medicine; Internal Medicine; Nurse Practitioner Acute Care; ADMIT Internal Medicine
DX: A41.81 Sepsis due to Enterococcus (principal); K85.90 Acute pancreatitis without necrosis or infection, unspecified; J96.01 Acute respiratory failure with hypoxia; K56.609 Unspecified intestinal obstruction, unspecified as to partial versus complete obstruction; K56.7 Ileus, unspecified; J98.11 Atelectasis; N39.0 Urinary tract infection, site not specified; Z20.828 Contact with and (suspected) exposure to other viral communicable diseases; F03.90 Unspecified dementia, unspecified severity, without behavioral disturbance, psychotic disturbance, mood disturbance, and anxiety; Z79.82 Long term (current) use of aspirin; Z99.3 Dependence on wheelchair; I73.9 Peripheral vascular disease, unspecified; E87.6 Hypokalemia; Z66 Do not resuscitate; Z51.5 Encounter for palliative care; R74.01 Elevation of levels of liver transaminase levels; Z74.09 Other reduced mobility; K52.9 Noninfective gastroenteritis and colitis, unspecified
CPT/HCPCS: 36415; 51701; 71045; 74018; 74177; 80048; 80053; 80061; 81001; 82271; 82947; 83605; 83690; 83735; 83880; 84100; 84132; 84443; 84478; 84484; 85014; 85018; 85025; 85027; 86850; 86900; 86901; 87040; 87077; 87086; 87186; 93005; 93010; 94640; 94760; 96365-59; 96375-59; 99285-25; C8929; C9113; J1170; J1940; J1956; J2270; J2405; J2543; J3010; J3480; J7030; J7050; J7060; Q9957; Q9967; U0004